=== PATIENT | female | born 2000 | race Caucasian/White ===

== ENCOUNTER 2024-07-15 06:32 | Outpatient (REF) | payer BC, SELFPAY ==
--- NOTE | ~2024-07-15 | US_ITS ---
EXAMINATION: US PELVIS TRANSABDOMINAL AND TRANSVAGINAL HISTORY: POSTCOITAL BLEEDING, PT HAS IUD COMPARISON: There are no prior studies for comparison. TECHNIQUE: Transabdominal and endovaginal real-time 2D ann-scale ultrasound was performed. FINDINGS: Uterus: The uterus is normal in size, measuring 7.2 x 3.0 x 3.5 cm. Myometrium has a normal echotexture. No fibroids are identified. Endometrium: The endometrial stripe measures 2 mm in thickness. An IUD is noted in the expected position in the endometrial canal. Right ovary: The right ovary measures 3.4 x 1.8 x 2.0 cm. The right ovary is normal in size and echotexture. Left ovary: The left ovary measures 2.3 x 1.6 x 2.0 cm. The left ovary is normal in size and echotexture. Pelvic fluid: none. US/US pelvic and transvaginal IMPRESSION: Unremarkable pelvic ultrasound. IUD in the expected position in the endometrial canal. Electronically signed by: Leopoldo Azar MD 07/16/2024 07:11 AM EDT
--- OUTSIDE RECORDS SUMMARY | 2024-07-15 06:36 | XMS_ITS | Encounter Summary ---
Author Organization [facility] Address [address] [place] [address] Care Team Providers Care Electronic Gaming Device Supervisor Name Role Phone Leopoldo Marin MD Primary Care Provider Adilene Jackson MD Primary Care Provider [phone] Encounter Details Date Type Department Care Team (Late st Contact Info) Description 06/27/2018 Orders Only [facility] [address] [place] [address] Kandi Heller MD [address] [place] [address] Social History Tobacco Use Types Packs/Day Years Used Date Smoking Tobacco: Never Assessed Comments No Sex and Gender Information Value Date Recorded Sex Assigned at Female 02/15/2023 1:29 PM EDT Legal Sex Female 1:31 PM EDT Gender Identity Female 02/15/2023 1:29 PM EDT Sexual Orientation Not on file documented as of this encounter Plan of Treatment Not on file documented as of this encounter Procedures * Due to [place] GRU[place] law, this organization might not be sharing negative HIV tests. Procedure Name Priority Date/Time Associated Diagnosis Comments CHLAMYDIA TRACHOMATIS/N. GONORRHOEAE (GC) RNA, TMA (URINE) Routine 06/27/2018 3:38 PM EST Difficult or painful urination documented in this encounter Results * Due to [place] state law, this organization might not be sharing negative HIV tests. * CHLAMYDIA TRACHOMATIS/N. GONORRHOEAE (GC) RNA, TMA (URINE) (06/27/2018 3:38 PM EST) Chlamydia trachomatis rRNA NOT DETECTED NOT DETECTED [facility] Neisseria Gonorrhoeae rRNA NOT DETECTED NOT DETECTED [facility] COMMENT SEE NOTE [facility] Comment: This test was performed using the APTIMA COMBO2 Assay ([employer] The analytical performance characteristics of this assay, when used to test SurePath specimens have been determined by [employer]. 06/27/2018 3:38 PM EST 06/27/2018 10:35 PM EST Narrative Resulting Agency Comment [id number] Kandi Heller MD LABORATORY Final Result Performing Organization Address City/State/[facility] Co de Phone Number [facility] [address] [place] [address] documented in this encounter Visit Diagnoses Diagnosis Difficult or painful urination Dysuria documented in this encounter Additional Health Concerns Infection Onset Date Last Indicated Resolved Time COVID-19 Rule-Out 04/22/2020 04/22/2020 04/25/2020 8:07 AM EST COVID-19 Confirmed 04/22/2020 04/22/2020 8:12 PM EDT documented as of this encounter Care Teams Electronic Gaming Device Supervisor Relationship Specialty Start Date End Date Leopoldo Marin MD [address] [place] [address] PCP - General 10/21/09 02/14/23 Aidlene Jackson MD [address] [place] [address] PCP - General Internal Medicine 02/15/23 documented as of this encounter
--- OUTSIDE RECORDS SUMMARY | 2024-07-15 06:36 | XMS_ITS | Encounter Summary ---
Author Organization [facility] Address [address] [place] [address] Phone Care Team Providers Care Button Facing Machine Operator Name Role Phone Leopoldo Marin MD Primary Care Provider Encounter Details Date Type Department Care Team (Late st Contact Info) Description 07/06/2021 Transcribe Orders Virtual Department [address] [place] [address] Vicki Valladares, MELIZA [address] [place] [phone] [email or web address] Pelvic pain (Primary Dx); Abnormal vaginal bleeding Social History Tobacco Use Types Packs/Day Years Used Date Smoking Tobacco: Never Assessed Sex and Gender Information Value Date Recorded Sex Assigned at Not on file Gender Identity Not on file Sexual Orientation Not on file documented as of this encounter Plan of Treatment Not on file documented as of this encounter Results * US PELVIS TRANSABDOMINAL PLUS TRANSVAGINAL (07/20/2021 5:42 PM EDT) Anatomical Region Laterality Modality Pelvis, Uterus/Adnexa Ultrasound 07/21/2021 10:0 2 AM EDT Impressions 07/21/2021 10:07 AM EDT 1. No evidence of uterine abnormalities. IUD adequately positioned within the endometrial canal. 2. Mildly complicated 2.7 cm cyst within the right ovary, likely clinically insignificant. Probable involuting corpus luteal cyst within the left ovary. Narrative 07/21/2021 10:07 AM EDT HISTORY: ??Disparity anemia and bleeding. Status post IUD placement 2 years ago. EXAM: ??Transabdominal and transvaginal pelvic ultrasound. COMPARISON: None. FINDINGS: Uterus: ??Uterus is normal in size and echogenicity. It measures 7.1 cm x 4.4 cm x 3.1 cm. Endometrial stripe normal measuring 4 mm in thickness. The IUD appears adequately positioned within the endometrial canal. No evidence of uterine masses. Ovaries: ??Both ovaries are normal in size. Right ovary measures 3.8 cm x 3.5 cm x 2.1 cm. Left ovary measures 3.5 cm x 2.4 cm x 2.3 cm. Normal arterial and venous blood flow demonstrated to both ovaries. 2.7 cm x 2.5 cm x 1.2 cm cyst within the right ovary containing 2 thin septations. 14 mm x 13 mm x 10 mm cyst within the left ovary containing mild internal echoes and increased vascularity around the margin, likely an involuting corpus luteum. Ovaries otherwise normal. Other: ??Small amount of free fluid, within physiologic range. No pelvic masses. Procedure Note Panda Herrera MD - 07/21/2021 HISTORY: Disparity anemia and bleeding. Status post IUD placement 2 yearsago. EXAM: Transabdominal and transvaginal pelvic ultrasound. COMPARISON: None. FINDINGS: Uterus: Uterus is normal in size and echogenicity. It measures 7.1 cm x4.4 cm x 3.1 cm. Endometrial stripe normal measuring 4 mm in thickness.The IUD appears adequately positioned within the endometrial canal. Noevidence of uterine masses. Ovaries: Both ovaries are normal in size. Right ovary measures 3.8 cm x3.5 cm x 2.1 cm. Left ovary measures 3.5 cm x 2.4 cm x 2.3 cm. Normalarterial and venous blood flow demonstrated to both ovaries. 2.7 cm x 2.5cm x 1.2 cm cyst within the right ovary containing 2 thin septations. 14mm x 13 mm x 10 mm cyst within the left ovary containing mild internalechoes and increased vascularity around the margin, likely an involutingcorpus luteum. Ovaries otherwise normal. Other: Small amount of free fluid, within physiologic range. No pelvicmasses. IMPRESSION: 1. No evidence of uterine abnormalities. IUD adequately positioned withinthe endometrial canal. 2. Mildly complicated 2.7 cm cyst within the right ovary, likelyclinically insignificant. Probable involuting corpus luteal cyst withinthe left ovary. Marci-Ortiz Valladares SLURRY WORKER IMG US PELVIS documented in this encounter Visit Diagnoses Diagnosis Pelvic pain- Primary Abnormal vaginal bleeding Other specified noninflammatory disorder of vagina Pelvic pain Abnormal vaginal bleeding Other specified noninflammatory disorder of vagina documented in this encounter Care Teams Button Facing Machine Operator Relationship Specialty Start Date End Date Leopoldo Marin MD [address] [place] [address] PCP - General Pediatrics 07/08/21 documented as of this encounter Additional Source Comments The information contained in this document represents components of the legal health record. It is not the complete legal health record.[facility]
--- OUTSIDE RECORDS SUMMARY | 2024-07-15 06:36 | XMS_ITS | Encounter Summary ---
Author Organization [facility] Address [address] [place] [address] Care Team Providers Care Rail Washer Name Role Phone Leopoldo Marin MD Primary Care Provider Adilene Jackson MD Primary Care Provider Encounter Details Date Type Department Care Team (Late st Contact Info) Description 07/29/2012 Orders Only [facility]s [address] [place] [address] Leopoldo Marin MD [address] [place] [address] Medications Social History Tobacco Use Types Packs/Day Years [...] on file documented as of this encounter Visit Diagnoses Not on filedocumented in this encounter Additional Health Concerns Infection Onset Date Last Indicated Resolved Time COVID-19 Rule-Out 04/22/2020 04/22/2020 04/25/2020 8:07 AM EST COVID-19 Confirmed 04/22/2020 04/22/2020 8:12 PM EDT documented as of this encounter Care Teams Rail Washer Relationship Specialty Start Date End Date Leopoldo Marin MD [address] [place] [address] PCP - General 10/21/09 02/14/23 Adilene Jackson MD [address] [place] [address] PCP - General Internal Medicine 02/15/23 documented as of this encounter
--- OUTSIDE RECORDS SUMMARY | 2024-07-15 06:36 | XMS_ITS | Encounter Summary ---
Author Organization [facility] Address [address] [place] [address] Care Team Providers Care Mortgage Funder Name Role Phone Leopoldo Marin MD Primary Care Provider Leopoldo Marin MD Primary Care Provider [phone] Adilene Jackson MD Primary Care Provider [phone] Encounter Details Date Type Department Care Team (Late st Contact Info) Description 03/09/2009 Orders Only [facility] [address] [place] [address] Leopoldo Marin MD [address] [place] [address] Social History Tobacco Use Types Packs/Day Years Used Date Smoking Tobacco: Never Assessed Comments Unknown Sex and Gender Information Value Date Recorded Sex Assigned at Female 02/15/2023 1:29 PM EDT Legal Sex Female 1:31 PM EDT Gender Identity Female 02/15/2023 1:29 PM EDT Sexual Orientation Not on file documented as of this encounter Plan of Treatment Not on file documented as of this encounter Procedures * Due to [place] state law, this organization might not be sharing negative HIV tests. Procedure Name Priority Date/Time Associated Diagnosis Comments CULTURE, STREP SCREEN (GROUP A), THROAT Routine 03/09/2009 Acute pharyngitis documented in this encounter Results * Due to [place] state law, this organization might not be sharing negative HIV tests. * CULTURE, STREP SCREEN (GROUP A), THROAT (03/09/2009) Result(s) SEE TEXT [facility] Comment: SOURCE: THROAT NO GROUP A STREPTOCOCCI ISOLATED 03/09/2009 03/09/2009 9:4 3 PM EST Leopoldo Marin MD LABORATORY Final Result [facility] [address] [place] [address] documented in this encounter Visit Diagnoses Diagnosis Acute pharyngitis documented in this encounter Additional Health Concerns Infection Onset Date Last Indicated Resolved Time COVID-19 Rule-Out 04/22/2020 04/22/2020 04/25/2020 8:07 AM EST COVID-19 Confirmed 04/22/2020 04/22/2020 8:12 PM EDT documented as of this encounter Care Teams Mortgage Funder Relationship Specialty Start Date End Date Leopoldo Marin MD [address] [place] [address] PCP - General 10/21/09 02/14/23 Leopoldo Marin MD [address] [place] [address] PCP - General 03/08/06 10/20/09 Adilene Jackson MD [address] [place] [address] PCP - General Internal Medicine 02/15/23 documented as of this encounter
--- OUTSIDE RECORDS SUMMARY | 2024-07-15 06:36 | XMS_ITS | Referral Summary ---
Author Organization [facility] Address [address] [place] [address] Care Team Providers Care Saw Man Name Role Phone Adilene Jackson Primary Care Provider [phone] Allergies No known active allergies Medications buPROPion XL (Wellbutrin XL) 150 mg tablet Active dextroamphetamin e sulfate (DEXTROSTAT) 10 mg tablet SMARTSI Tablet(s) By Mouth Every Evening PRN 3 Active escitalopram (Lexapro) 20 mg tablet Active levonorgestreL (Kyleena) 17.5 mcg/24 hrs (5 yrs) 19.5 mg intrauterine device (5 year) by intrauterine route. Active lisdexamfetamine (Vyvanse) 50 mg capsule Active acetic acid (VOSOL) 2% otic solution Place 5 drops into the left ear 3 times a day. 3 mL 4 Active Active Problems Problem Noted Date Diagnosed Date Tachycardia 09/21/2022 Social History Tobacco Use Types Packs/Day Years Used Date Smoking Tobacco: Never Smokeless Tobacco: Never Tobacco Cessation:Counseling Given: Not Answered Comments Unknown Sex and Gender Information Value Date Recorded Sex Assigned at Female 09/20/2022 7:37 PM EDT Legal Sex Female 1:18 PM EDT Gender Identity Female 09/20/2022 7:37 PM EDT Sexual Orientation Choose not to disclose 2022 7:37 PM EDT Last Filed Vital Signs Vital Sign Reading Time Taken Comments Blood Pressure 114/77 08/30/2023 8:22 AM EDT Pulse 86 08/30/2023 8:22 AM EDT Temperature 36.4 ??C (97.5 ??F) 08/30/2023 8:22 AM ED T Respiratory Rate 16 09/21/2022 9:34 AM EDT Oxygen Saturation 99% 08/30/2023 8:22 AM EDT Inhaled Oxygen Concentration - - Weight 63.5 kg (140 lb) 08/30/2023 8:22 AM EDT Height 162.6 cm (5' 4 ) 08/30/2023 8:22 AM EDT Body Mass Index 24.03 08/30/2023 8:22 AM EDT Plan of Treatment Not on file Insurance HMO/POS [address] [place] [address] HMO/POS Care Teams Saw Man Relationship Specialty Start Date End Date Adilene Jackson DO [address] [place] [address] PCP - General 08/30/23
--- OUTSIDE RECORDS SUMMARY | 2024-07-15 06:36 | XMS_ITS | Encounter Summary ---
Author Organization [facility] Address [address] [place] [address] Phone Care Team Providers Care Holter Technician Name Role Phone Leopoldo Marin MD Primary Care Provider Encounter Details Date Type Department Care Team (Late st Contact Info) Description 10/16/2022 Ancillary Orders Virtual Department [address] [place] [address] Vicki Valladares, MELIZA [address] [place] [address] [email or web address] Pelvic and perineal pain; RLQ abdominal pain Social History Tobacco Use Types Packs/Day Years Used Date Smoking Tobacco: Never Assessed Education Answer Date Recorded Are you interested in more education? Not on eva e 08/19/2022 Are you concerned about learning? Not on file 08/19/2022 No 08/19/2022 No 08/19/2022 Digital Access Answer Date Recorded No 09/19/2022 No 09/19/2022 Reliable internet access at home? Not on file 09/19/2022 Device with a working camera? Not on file Sex and Gender Information Value Date Recorded Sex Assigned at Not on file Gender Identity Not on file Sexual Orientation Not on file documented as of this encounter Plan of Treatment Not on file documented as of this encounter Results * US PELVIS TRANSABDOMINAL PLUS TRANSVAGINAL (11/01/2022 1:36 PM EDT) Anatomical Region Laterality Modality Pelvis, Uterus/Adnexa Ultrasound 11/08/2022 9:00 AM EDT Impressions 11/08/2022 10:02 AM EDT No abnormalities on pelvic ultrasound. IUD adequately positioned within the endometrial canal. Narrative 11/08/2022 10:02 AM EDT US PELVIS TRANSABDOMINAL PLUS TRANSVAGINAL HISTORY: Right-sided pelvic pain and abnormal vaginal bleeding, IUD known to be in place. TECHNIQUE: Pelvic Ultrasound Transabdominal performed for global imaging of the pelvis. Pelvic Ultrasound Transvaginal performed for detailed imaging of the endometrium and/or adnexa. COMPARISON: Pelvic ultrasound 08/25/2021. FINDINGS: Uterus: Size: ??6.6 cm x 3.6 cm x 1.4 cm similar to previous ultrasound. cm. Orientation: Slightly anteverted. ??Myometrium: Normal. Endometrium: Normal. ID visible within the endometrial canal. It appears adequately positioned. Endometrial stripe thickness: 3 mm. Right adnexa: Ovary: The ovary is normal in size and demonstrates a normal follicular pattern. Dominant follicle within the ovary. Normal arterial and venous blood flow demonstrated to the ovary. The ovary measures 3.3 cm x 2.3 cm x 1.8 cm. Left adnexa: Ovary: The ovary is normal in size and demonstrates a normal follicular pattern. Normal arterial and venous blood flow demonstrated to the ovary. The ovary measures 2.9 cm x 2.1 cm x 1.4 cm. Free fluid: No significant free fluid. Procedure Note Panda Herrera MD - 11/08/2022 US PELVIS TRANSABDOMINAL PLUS TRANSVAGINAL HISTORY: Right-sided pelvic pain and abnormal vaginal bleeding, IUD knownto be in place. TECHNIQUE: Pelvic Ultrasound Transabdominal performed for global imagingof the pelvis. Pelvic Ultrasound Transvaginal performed for detailedimaging of the endometrium and/or adnexa. COMPARISON: Pelvic ultrasound 08/25/2021. FINDINGS: Uterus: Size: 6.6 cm x 3.6 cm x 1.4 cm similar to previous ultrasound. cm. Orientation: Slightly anteverted. Myometrium: Normal. Endometrium: Normal. ID visible within the endometrial canal. It appearsadequately positioned. Endometrial stripe thickness: 3 mm. Right adnexa: Ovary: The ovary is normal in size and demonstrates a normal follicular pattern.Dominant follicle within the ovary. Normal arterial and venous blood flowdemonstrated to the ovary. The ovary measures 3.3 cm x 2.3 cm x 1.8 cm. Left adnexa: Ovary: The ovary is normal in size and demonstrates a normal follicular pattern.Normal arterial and venous blood flow demonstrated to the ovary. The ovarymeasures 2.9 cm x 2.1 cm x 1.4 cm. Free fluid: No significant free fluid. IMPRESSION: No abnormalities on pelvic ultrasound. IUD adequately positioned withinthe endometrial canal. Vicki Valladares CNP IMG US PELVIS documented in this encounter Visit Diagnoses Diagnosis Pelvic and perineal pain RLQ abdominal pain Abdominal pain, right lower quadrant Pelvic and perineal pain RLQ abdominal pain Abdominal pain, right lower quadrant documented in this encounter Care Teams Holter Technician Relationship Specialty Start Date End Date Leopoldo Marin MD [address] [place] [address] PCP - General Pediatrics 07/08/21 documented as of this encounter Additional Source Comments The information contained in this document represents components of the legal health record. It is not the complete legal health record.[facility]
--- OUTSIDE RECORDS SUMMARY | 2024-07-15 06:36 | XMS_ITS | Encounter Summary ---
Author Organization [facility] Address [address] [place] [address] Care Team Providers Care Pest Control Pilot Name Role Phone Leopoldo Marin MD Primary Care Provider [phone] Leopoldo Marin MD Primary Care Provider Adilene Jackson MD Primary Care Provider [phone] Reason for Visit * Reason Onset Date Comments FYI 11/20/2008 School Evaluatio n Encounter Details Date Type Department Care Team (Late st Contact Info) Description 11/20/2008 Telephone [facility] Pediatrics [address] [place] [address] Leopoldo Marin MD [address] [place] [address] FYI (School Evaluation) Social History Tobacco Use Types Packs/Day Years Used Date Smoking Tobacco: Never Assessed Comments Unknown Sex and Gender Information Value Date Recorded Sex Assigned at Female 02/15/2023 1:29 PM EDT Legal Sex Female 1:31 PM EDT Gender Identity Female 02/15/2023 1:29 PM EDT Sexual Orientation Not on file documented as of this encounter Miscellaneous Notes * Telephone Encounter - Onleia Lorenz-Bernabe - 11/20/2008 10:47 AM EDT Mom dropped off school's evaluation of patient. Sent to PCP for review. documented in this encounter Plan of Treatment Not on file documented as of this encounter Visit Diagnoses Not on filedocumented in this encounter Additional Health Concerns Infection Onset Date Last Indicated Resolved Time COVID-19 Rule-Out 04/22/2020 04/22/2020 04/25/2020 8:07 AM EST COVID-19 Confirmed 04/22/2020 04/22/2020 8:12 PM EDT documented as of this encounter Care Teams Pest Control Pilot Relationship Specialty Start Date End Date Leopoldo Marin MD [address] [place] [address] PCP - General 10/21/09 02/14/23 Leopoldo Marin MD [address] [place] [address] PCP - General 03/08/06 10/20/09 Adilene Jackson MD [address] [place] [address] PCP - General Internal Medicine 02/15/23 documented as of this encounter
--- OUTSIDE RECORDS SUMMARY | 2024-07-15 06:36 | XMS_ITS | Encounter Summary ---
Author Organization [facility] Address [address] [place] [address] Care Team Providers Care A P Manager Name Role Phone Leopoldo Marin MD Primary Care Provider [phone] Adilene Jackson MD Primary Care Provider Encounter Details Date Type Department Care Team (Late st Contact Info) Description 07/13/2020 Orders Only [facility] [address] [place] [address] Kathy Willis MD [facility] [address] [place] [address] Social History Tobacco Use Types Packs/Day Years Used Date Smoking Tobacco: Never Smokeless Tobacco: Never Comments No Sex and Gender Information Value Date Recorded Sex Assigned at Female 02/15/2023 1:29 PM EDT Legal Sex Female 1:31 PM EDT Gender Identity Female 02/15/2023 1:29 PM EDT Sexual Orientation Not on file COVID-19 Exposure Response Date Recorded In the last month, have you been in contact with someone who was confirmed or suspected to have Coronavirus / COVID-19? No / Unsure 07/09/2020 12:44 PM EDT documented as of this encounter Plan of Treatment Not on file documented as of this encounter Procedures * Due to [place] state law, this organization might not be sharing negative HIV tests. Procedure Name Priority Date/Time Associated Diagnosis Comments CHLAMYDIA TRACHOMATIS/N. GONORRHOEAE (GC) RNA, TMA (URINE) Routine 07/13/2020 5:12 PM EDT Encounter for screening for infections with predominantly sexual mode of transmission documented in this encounter Results * Due to [place] state law, this organization might not be sharing negative HIV tests. * CHLAMYDIA TRACHOMATIS/N. GONORRHOEAE (GC) RNA, TMA (URINE) (07/13/2020 5:12 PM EDT) Chlamydia trachomatis rRNA NOT DETECTED NOT DETECTED [facility] Neisseria Gonorrhoeae rRNA NOT DETECTED NOT DETECTED [facility] COMMENT SEE NOTE [facility] Comment: The analytical performance characteristics of this assay, when used to test SurePath(TM) specimens have been determined by [employer]. The modifications have not been cleared or approved by the FDA. This assay has been validated pursuant to the CLIA regulations and is used for clinical purposes. For additional information, please refer to https://education.CustEx/faq/HKO755 (This link is being provided for information/ educational purposes only.) 07/13/2020 5:12 PM EDT 07/14/2020 2:28 AM EDT Narrative Resulting Agency Comment [id number] Leopoldo Marin MD LABORATORY Final Result [facility] [address] [place] [address] documented in this encounter Visit Diagnoses Diagnosis Encounter for screening for infections with predominantly sexual mode of transmission Screening examination for venereal disease documented in this encounter Additional Health Concerns Infection Onset Date Last Indicated Resolved Time COVID-19 Confirmed 04/22/2020 04/22/2020 8:12 PM EDT documented as of this encounter Care Teams A P Manager Relationship Specialty Start Date End Date Leopoldo Marin MD [address] [place] [address] PCP - General 10/21/09 02/14/23 Adilene Jackson MD [address] [place] [address] PCP - General Internal Medicine 02/15/23 documented as of this encounter
--- OUTSIDE RECORDS SUMMARY | 2024-07-15 06:36 | XMS_ITS | Encounter Summary ---
Author Organization [facility] Address [address] [place] [address] Care Team Providers Care Ocular Care Aide Name Role Phone Leopoldo Marin MD Primary Care Provider [phone] Adilene Jackson MD Primary Care Provider [phone] Encounter Details Date Type Department Care Team (Late st Contact Info) Description 03/13/2012 Orders Only [facility] [address] [place] [address] Charisma Holder PA Social History Tobacco Use Types Packs/Day Years [...] of this encounter Procedures * Due to [place] [employer] law, this organization might not be sharing negative HIV tests. Procedure Name Priority Date/Time Associated Diagnosis Comments CULTURE,AEROBIC WOUND,SUPERFICIAL Routine 03/13/2012 3:40 PM EST Abscess documented in this encounter Results * Due to [place] [employer] law, this organization might not be sharing negative HIV tests. * CULTURE, WOUND, SUPERFICIAL (03/13/2012 3:40 PM EST) Bacteria culture SEE NOTE [facility] Comment: {CULTURE, AEROBIC BACTERIA {[id number]) ??CULTURE, AEROBIC BACTERIA ??MICRO NUMBER: ?[id number] ??TEST STATUS: ? FINAL ??SPECIMEN SOURCE: ?? NOT GIVEN ??SPECIMEN QUALITY: ??ADEQUATE ??RESULT: ?Growth of skin nikhil (note: Growth does not ? include S. aureus, beta-hemolytic Streptococci ? or P. aeruginosa). 03/13/2012 3:40 PM EST 03/13/2012 10:19 PM EST Narrative Resulting Agency Comment [id number] [facility] Final Result Performing Organization Address City/State/[facility] Co de Phone Number [facility] [address] [place] [address] documented in this encounter Visit Diagnoses Diagnosis Abscess Cellulitis and abscess of unspecified site documented in this encounter Additional Health Concerns Infection Onset Date Last Indicated Resolved Time COVID-19 Rule-Out 04/22/2020 04/22/2020 04/25/2020 8:07 AM EST COVID-19 Confirmed 04/22/2020 04/22/2020 8:12 PM EDT documented as of this encounter Care Teams Ocular Care Aide Relationship Specialty Start Date End Date Leopoldo Marin MD [address] [place] [address] PCP - General 10/21/09 02/14/23 Adilene Jackson MD [address] [place] [address] PCP - General Internal Medicine 02/15/23 documented as of this encounter
--- OUTSIDE RECORDS SUMMARY | 2024-07-15 06:36 | XMS_ITS | Encounter Summary ---
Author Organization [facility] Address [address] [place] [address] Phone Care Team Providers Care Railroad Supervisor Of Engines Name Role Phone Leopoldo Marin MD Primary Care Provider Encounter Details Date Type Department Care Team (Late st Contact Info) Description 03/24/2022 Transcribe Orders Virtual Department [address] [place] [address] Vicki Valladares, CLINICAL RN MANAGER [address] [place] [address] Pelvic and perineal pain (Primary Dx) Social History Tobacco Use Types Packs/Day Years Used Date Smoking Tobacco: Never Assessed Sex and Gender Information Value Date Recorded Sex Assigned at Not on file Gender Identity Not on file Sexual Orientation Not on file documented as of this encounter Plan of Treatment Not on file documented as of this encounter Visit Diagnoses Diagnosis Pelvic and perineal pain- Primary documented in this encounter Care Teams Railroad Supervisor Of Engines Relationship Specialty Start Date End Date Leopoldo Marin MD [address] [place] [address] PCP - General Pediatrics 07/08/21 documented as of this encounter Additional Source Comments The information contained in this document represents components of the legal health record. It is not the complete legal health record.[facility]
--- OUTSIDE RECORDS SUMMARY | 2024-07-15 06:36 | XMS_ITS | Encounter Summary ---
Author Organization [facility] Address [address] [place] [address] Care Team Providers Care Paper Inserter Name Role Phone Leopoldo Marin MD Primary Care Provider Adilene Jackson MD Primary Care Provider [phone] Reason for Visit * Reason Comments CPE/Physical Encounter Details Date Type Department Care Team (Late st Contact Info) Description 03/29/2022 Orders Only Population [facility] [address] [place] [address] Leopoldo Marin MD [address] [place] [address] Social History Tobacco Use Types Packs/Day Years [...] Diagnoses Not on filedocumented in this encounter Care Teams Paper Inserter Relationship Specialty Start Date End Date Leopoldo Marin MD [address] [place] [address] PCP - General 10/21/09 02/14/23 Adilene Jackson MD [address] [place] [address] PCP - General Internal Medicine 02/15/23 documented as of this encounter
--- OUTSIDE RECORDS SUMMARY | 2024-07-15 06:36 | XMS_ITS | Encounter Summary ---
Author Organization [facility] Address [address] [place] [address] Care Team Providers Care Branch Administrator Name Role Phone Leopoldo Marin MD Primary Care Provider Leopoldo Marin MD Primary Care Provider [phone] Adilene Jackson MD Primary Care Provider [phone] Encounter Details Date Type Department Care Team (Late st Contact Info) Description 11/09/2006 Orders Only [facility] [address] [place] [address] Virginie Arndt MD [address] [place] [address] Social History Tobacco Use Types Packs/Day Years [...] of this encounter Procedures * Due to [place] [employer] law, this organization might not be sharing negative HIV tests. Procedure Name Priority Date/Time Associated Diagnosis Comments CULTURE, URINE Routine 11/09/2006 DYSURIA documented in this encounter Results * Due to [place] state law, this organization might not be sharing negative HIV tests. * (ABNORMAL) CULTURE, URINE (11/09/2006) URINE CULTURE CLEAN VOID SEE TEXT(A) [facility] OJEDA (CLIA# [id number]) Comment: SOURCE: URINE (#1) >100,000 CFU/ML E COLI SUSCEPTIBILITIES ? #1 ??AMPICILLIN ?4 S ?AMPICILLIN/SUL ? <8 S ?AZTREONAM ?<8 S ?CEFAZOLIN ?<8 S ?CEFEPIME ? <8 S ?CEFOTAXIME ? <8 S ?CEFTRIAXONE ?<8 S ?CEFUROXIME ? <4 S ?CEPHALOTHIN ?<8 S ?CIPROFLOXACIN ?<1 S ?GENTAMICIN ? <1 S ?LEVOFLOXACIN ? <2 S ?NITROFURANTOIN ?<32 S ?PIPERACILLIN/TA ?? <16 S ?TETRACYCLINE ? <4 S ?TIMENTIN ?<16 S ?TRIMETH/SULFA ?<2 S ?TRIMETHOPRIM ? <8 S ?? 11/09/2006 11/09/2006 9:1 7 PM EDT us Virginie Arndt MD LABORATORY Final Result DEBRA OJEDA (CLIA# [id number]) [address] [place] [address] documented in this encounter Visit Diagnoses Diagnosis DYSURIA Dysuria documented in this encounter Additional Health Concerns Infection Onset Date Last Indicated Resolved Time COVID-19 Rule-Out 04/22/2020 04/22/2020 04/25/2020 8:07 AM EST COVID-19 Confirmed 04/22/2020 04/22/2020 8:12 PM EDT documented as of this encounter Care Teams Branch Administrator Relationship Specialty Start Date End Date Leopoldo Marin MD [address] [place] [address] PCP - General 10/21/09 02/14/23 Leopoldo Marin MD [address] [place] [address] PCP - General 03/08/06 10/20/09 Adilene Jackson MD [address] [place] [address] PCP - General Internal Medicine 02/15/23 documented as of this encounter
--- OUTSIDE RECORDS SUMMARY | 2024-07-15 06:36 | XMS_ITS | Clinical Summary ---
Author Organization [facility] Address [address] [place] [address] Phone Care Team Providers Care Homicide Squad Commanding Officer Name Role Phone Leopoldo Marin MD Primary Care Provider Social History Tobacco Use Types Packs/Day Years [...] on file Sexual Orientation Not on file Plan of Treatment Health Maintenance Due Date Last Done Comments DEPRESSION SCREENING 2013 SMOKING Hx and SMOKELESS TOBACCO SCREENING 2014 CHLAMYDIA SCREENING 2017 Adult Td,Tdap Booster 11/17/2018 11/17/2008 HEPATITIS B SCREENING 10/23/2019 HEPATITIS C SCREENING 10/23/2019 HIV ONE-TIME SCREENING (18-65 YEARS) 10/23/2019 PAP SMEAR 2022 INFLUENZA VACCINE (#1) 2023 , 03/01/2021, 01/26/2020, Additional history exists COVID-19 VACCINE ( season) 2023 03/24/2022, 05/02/2021, 08/11/2020, Additional history exists HEPATITIS B VACCINES Completed 08/20/2002, 2001, 2001 PNEUMOCOCCAL VACCINES (0-49 years) Aged Out 04/28/2003, 05/07/2002, 02/10/2002, Additional history exists No longer eligible based on patient's age to complete this topic HIB VACCINES Completed 06/03/2003, 04/23, 02/10/2002, Additional history exists HEPATITIS A VACCINES Completed 11/06/2012, 11/07/19 12 HPV VACCINES Completed 09/14/2015, 04/24, 03/08/2015 MENINGOCOCCAL VACCINES (ACWY) Completed 04/03/2018, 11/06/2012 Medical Devices Not on file Care Teams Homicide Squad Commanding Officer Relationship Specialty Start Date End Date Leopoldo Marin MD [address] [place] [address] PCP - General Pediatrics 07/08/21 Additional Source Comments The information contained in this document represents components of the legal health record. It is not the complete legal health record.[facility]
--- OUTSIDE RECORDS SUMMARY | 2024-07-15 06:36 | XMS_ITS | Encounter Summary ---
Author Organization [facility] Address [address] [place] [address] Phone Care Team Providers Care Workday Manager Name Role Phone Leopoldo Marin MD Primary Care Provider Encounter Details Date Type Department Care Team (Late st Contact Info) Description 08/22/2021 Transcribe Orders Virtual Department [address] [place] [address] Vicki Valladares, EMAIL MARKETING MANAGER [address] [place] [address] [email or web address] Complex cyst of right ovary (Primary Dx) Social History Tobacco Use Types Packs/Day Years Used Date Smoking Tobacco: Never Assessed Sex and Gender Information Value Date Recorded Sex Assigned at Not on file Gender Identity Not on file Sexual Orientation Not on file documented as of this encounter Plan of Treatment Not on file documented as of this encounter Results * US PELVIS TRANSVAGINAL ONLY (08/25/2021 11:40 AM EDT) Anatomical Region Laterality Modality Pelvis, Uterus/Adnexa Ultrasound 08/25/2021 2:56 PM EDT Impressions 08/25/2021 2:59 PM EDT Benign 1.7 cm right ovarian involuting hemorrhagic versus corpus luteum cyst, for which no further imaging follow-up is required. Narrative 08/25/2021 2:59 PM EDT US PELVIS TRANSVAGINAL TECHNIQUE: Pelvic Ultrasound Transvaginal performed for detailed imaging of the endometrium and/or adnexa. COMPARISON: 07/20/2021 FINDINGS: Uterus: Size: 6.7 x 3 x 4 cm. IUD in satisfactory position. ??Myometrium: Normal. Endometrium: Normal. Thickness: 4 mm. Right adnexa: Ovary: Measures 3 x 1.8 x 2.5 cm Benign 1.7 x 1 x 1.4 cm right ovarian involuting hemorrhagic versus corpus luteum cyst, decreased in size from the prior study Left adnexa: Ovary: Normal Measures 2.3 x 2 x 1.5 cm Free fluid: No significant free fluid. Procedure Note Misti Maurer MD - 08/25/2021 US PELVIS TRANSVAGINAL TECHNIQUE: Pelvic Ultrasound Transvaginal performed for detailed imagingof the endometrium and/or adnexa. COMPARISON: 07/20/2021 FINDINGS: Uterus: Size: 6.7 x 3 x 4 cm. IUD in satisfactory position. Myometrium: Normal. Endometrium: Normal. Thickness: 4 mm. Right adnexa: Ovary: Measures 3 x 1.8 x 2.5 cm Benign 1.7 x 1 x 1.4 cm right ovarian involuting hemorrhagic versus corpusluteum cyst, decreased in size from the prior study Left adnexa: Ovary: Normal Measures 2.3 x 2 x 1.5 cm Free fluid: No significant free fluid. IMPRESSION: Benign 1.7 cm right ovarian involuting hemorrhagic versus corpus luteumcyst, for which no further imaging follow-up is required. Vicki Valladares [facility] US PELVIS documented in this encounter Visit Diagnoses Diagnosis Complex cyst of right ovary- Primary Complex cyst of right ovary documented in this encounter Care Teams Workday Manager Relationship Specialty Start Date End Date Leopoldo Marin MD [address] [place] [address] PCP - General Pediatrics 07/08/21 documented as of this encounter Additional Source Comments The information contained in this document represents components of the legal health record. It is not the complete legal health record.[facility]
--- OUTSIDE RECORDS SUMMARY | 2024-07-15 06:36 | XMS_ITS | Encounter Summary ---
Author Organization [facility] Address [address] [place] [address] Care Team Providers Care Passenger Attendant Name Role Phone Leopoldo Marin MD Primary Care Provider Leopoldo Marin MD Primary Care Provider [phone] Adilene Jackson MD Primary Care Provider [phone] Reason for Visit * Reason Onset Date Comments No Show 03/09/2009 Encounter Details Date Type Department Care Team (Late st Contact Info) Description 03/09/2009 Telephone [facility] [address] [place] [address] Leopoldo Marin MD [address] [place] [address] No Show Social History Tobacco Use Types Packs/Day Years Used Date Smoking Tobacco: Never Assessed Comments Unknown Sex and Gender Information Value Date Recorded Sex Assigned at Female 02/15/2023 1:29 PM EDT Legal Sex Female 1:31 PM EDT Gender Identity Female 02/15/2023 1:29 PM EDT Sexual Orientation Not on file documented as of this encounter Miscellaneous Notes * Telephone Encounter - Onelia Lorenz-Bernabe - 03/09/2009 9:32 AM EST Pt no showed an appointment on 02/16/09 for a physical. Call to home was made on 02/17/09- with no return call to reschedule. Mailed letter on 03/09/09. documented in this encounter Plan of Treatment Not on file documented as of this encounter Visit Diagnoses Not on filedocumented in this encounter Additional Health Concerns Infection Onset Date Last Indicated Resolved Time COVID-19 Rule-Out 04/22/2020 04/22/2020 04/25/2020 8:07 AM EST COVID-19 Confirmed 04/22/2020 04/22/2020 8:12 PM EDT documented as of this encounter Care Teams Passenger Attendant Relationship Specialty Start Date End Date Leopoldo Marin MD [address] [place] [address] PCP - General 10/21/09 02/14/23 Leopoldo Marin MD [address] [place] [address] PCP - General 03/08/06 10/20/09 Adilene Jackson MD [address] [place] [address] PCP - General Internal Medicine 02/15/23 documented as of this encounter
--- OUTSIDE RECORDS SUMMARY | 2024-07-15 06:36 | XMS_ITS | Encounter Summary ---
Author Organization [facility] Address [address] [place] [address] Care Team Providers Care Larry Operator Name Role Phone Leopoldo Marin MD Primary Care Provider [phone] Leopoldo Marin MD Primary Care Provider [phone] Adilene Jackson MD Primary Care Provider [phone] Encounter Details Date Type Department Care Team (Late st Contact Info) Description 05/06/2009 Orders Only [facility] [address] [place] [address] Tali Santoro MD Social History Tobacco Use Types Packs/Day Years [...] of this encounter Procedures * Due to [place] state law, this organization might not be sharing negative HIV tests. Procedure Name Priority Date/Time Associated Diagnosis Comments CULTURE, STREP SCREEN (GROUP A), THROAT Routine 05/06/2009 Sore throat MICROSCOPIC URINE Routine 05/06/2009 CULTURE, URINE Routine 05/06/2009 Abdominal pain URINALYSIS, DIPSTICK WITH REFLEX MICROSCOPIC Routine 05/06/2009 Abdominal pain documented in this encounter Results * Due to [place] state law, this organization might not be sharing negative HIV tests. * MICROSCOPIC URINE (05/06/2009) WBC (URINE) 0-5 0-4/HPF [facility] RBC (Urine Sed) 0 0-3/HPF [facility] EPITHELIAL CELLS.SQUAMOUS (URINE SED) 0 0-5/HPF [facility] EPITHELIAL CELLS.TRANSITIO NAL (URINE SED) 0 0-5/HPF [facility] EPITHELIAL CELLS.RENAL (URINE SED) 0 0-3/HPF [facility] BACTERIA (URINE) NONE SEEN NONE SEEN [facility] 05/06/2009 05/07/2009 12: 16 AM EST Tali Santoro MD LABORATORY Final Result Performing Organization Address [facility] de Phone Number [facility] [address] [place] [address] * CULTURE, STREP SCREEN (GROUP A), THROAT (05/06/2009) Result(s) SEE TEXT [facility] Comment: SOURCE: THROAT NO GROUP A STREPTOCOCCI ISOLATED 05/06/2009 05/07/2009 12: 16 AM EST Tali Santoro MD LABORATORY Final Result Performing Organization Address [facility] de Phone Number [facility] [address] [place] [address] * CULTURE, URINE (05/06/2009) URINE CULTURE CLEAN VOID SEE TEXT [facility] Comment: SOURCE: URINE NO GROWTH 05/06/2009 05/07/2009 12: 16 AM EST Tali Santoro MD LABORATORY Final Result Performing Organization Address [facility] Co de Phone Number [facility] [address] [place] [address] * (ABNORMAL) URINALYSIS, DIPSTICK WITH REFLEX MICROSCOPIC (05/06/2009) COLOR (URINE) YELLOW YELLOW [facility] APPEARANCE (URINE) CLEAR CLEAR [facility] SPECIFIC GRAVITY 1.034 1.001 - 1.035 [facility] PH (URINE) 7.5 5.0 - 8.0 [facility] PROTEIN (URINE) 1+(A) NEG [facility] GLUCOSE (URINE) NEG NEG [facility] Ketones (Urine) NEG NEG [facility] BILIRUBIN (URINE) NEG NEG [facility] BLOOD (URINE) NEG NEG [facility] WBC (URINE) NEG NEG [facility] NITRITE (URINE) NEG NEG [facility] 05/06/2009 05/07/2009 12: 16 AM EST us Tali Santoro MD LAB SAME DAY RESULT Final Resul t [facility] [address] [place] [address] documented in this encounter Visit Diagnoses Diagnosis Abdominal pain Abdominal pain, unspecified site Sore throat Acute pharyngitis documented in this encounter Additional Health Concerns Infection Onset Date Last Indicated Resolved Time COVID-19 Rule-Out 04/22/2020 04/22/2020 04/25/2020 8:07 AM EST COVID-19 Confirmed 04/22/2020 04/22/2020 8:12 PM EDT documented as of this encounter Care Teams Larry Operator Relationship Specialty Start Date End Date Leopoldo Marin MD [address] [place] [address] PCP - General 10/21/09 02/14/23 Leopoldo Marin MD [address] [place] [address] PCP - General 03/08/06 10/20/09 Adilene Jackson MD [address] [place] [address] PCP - General Internal Medicine 02/15/23 documented as of this encounter
--- OUTSIDE RECORDS SUMMARY | 2024-07-15 06:36 | XMS_ITS | Encounter Summary ---
Author Organization [facility] Address [address] [place] [address] Care Team Providers Care Gas Turbine Powerplant Mechanic Helper Name Role Phone Leopoldo Marin MD Primary Care Provider Adilene Jackson MD Primary Care Provider [phone] Encounter Details Date Type Department Care Team (Late st Contact Info) Description 04/10/2019 Orders Only [facility] [address] [place] [address] Leopoldo Marin MD [address] [place] [address] Social History Tobacco Use Types Packs/Day Years [...] of this encounter Procedures * Due to [place] [employer] law, this organization might not be sharing negative HIV tests. Procedure Name Priority Date/Time Associated Diagnosis Comments CHLAMYDIA TRACHOMATIS/N. GONORRHOEAE (GC) RNA, TMA (URINE) Routine 04/10/2019 11:22 AM EST Screen for sexually transmitted diseases documented in this encounter Results * Due to [place] state law, this organization might not be sharing negative HIV tests. * CHLAMYDIA TRACHOMATIS/N. GONORRHOEAE (GC) RNA, TMA (URINE) (04/10/2019 11:22 AM EST) Chlamydia trachomatis rRNA NOT DETECTED NOT DETECTED [facility] Neisseria Gonorrhoeae rRNA NOT DETECTED NOT DETECTED [facility] COMMENT SEE NOTE [facility] Comment: This test was performed using the APTIMA COMBO2 Assay ([employer] The analytical performance characteristics of this assay, when used to test SurePath specimens have been determined by [employer]. 04/10/2019 11:2 2 AM EST 04/10/2019 1:59 PM EST Narrative Resulting Agency Comment [id number] us Leopoldo Marin MD LABORATORY Final Result Performing Organization Address City/State/[facility] Co de Phone Number [facility] [address] [place] [address] documented in this encounter Visit Diagnoses Diagnosis Screen for sexually transmitted diseases Screening examination for venereal disease documented in this encounter Additional Health Concerns Infection Onset Date Last Indicated Resolved Time COVID-19 Rule-Out 04/22/2020 04/22/2020 04/25/2020 8:07 AM EST COVID-19 Confirmed 04/22/2020 04/22/2020 8:12 PM EDT documented as of this encounter Care Teams Gas Turbine Powerplant Mechanic Helper Relationship Specialty Start Date End Date Leopoldo Marin MD [address] [place] [address] PCP - General 10/21/09 02/14/23 Adilene Jackson MD [address] [place] [address] PCP - General Internal Medicine 02/15/23 documented as of this encounter
--- OUTSIDE RECORDS SUMMARY | 2024-07-15 06:36 | XMS_ITS | Encounter Summary ---
Author Organization [facility] Address [address] [place] [address] Care Team Providers Care Processes Chemical Design Engineer Name Role Phone Leopoldo Marin MD Primary Care Provider [phone] Leopoldo Marin MD Primary Care Provider [phone] Adilene Jackson MD Primary Care Provider [phone] Encounter Details Date Type Department Care Team (Late st Contact Info) Description 02/10/2009 Orders Only [facility] Pediatrics [address] [place] [address] Charisma Holder PA Social History Tobacco Use Types Packs/Day Years Used Date Smoking Tobacco: Never Assessed Comments Unknown Sex and Gender Information Value Date Recorded Sex Assigned at Female 02/15/2023 1:29 PM EDT Legal Sex Female 1:31 PM EDT Gender Identity Female 02/15/2023 1:29 PM EDT Sexual Orientation Not on file documented as of this encounter Progress Notes * Charisma Holder PA - 02/16/2009 1:38 PM EDTQuick Note: . documented in this encounter Plan of Treatment Not on file documented as of this encounter Procedures * Due to [place] state law, this organization might not be sharing negative HIV tests. Procedure Name Priority Date/Time Associated Diagnosis Comments LYME DISEASE PANEL W/WB REFLEX Routine 02/10/2009 Pain in Joint LYME WESTERN BLOT, IGG & IGM PANEL Routine 02/10/2009 SED RATE ESR Routine 02/10/2009 Pain in Joint CBC 5 PART DIFF Routine 02/10/2009 Pain in Joint documented in this encounter Results * Due to [place] state law, this organization might not be sharing negative HIV tests. * (ABNORMAL) LYME WESTERN BLOT, IGG & IGM PANEL (02/10/2009) LYME (B. BURGDORFERI) 18KD IGG NEGATIVE [facility] LYME (B. BURGDORFERI) 23KD IGG POSITIVE [facility] LYME (B. BURGDORFERI) 28KD IGG NEGATIVE [facility] LYME (B. BURGDORFERI) 30KD IGG NEGATIVE [facility] LYME (B. BURGDORFERI) 39KD IGG NEGATIVE [facility] LYME (B. BURGDORFERI) 41KD IGG POSITIVE [facility] LYME (B. BURGDORFERI) 45KD IGG NEGATIVE [facility] LYME (B. BURGDORFERI) 58KD IGG NEGATIVE [facility] LYME (B. BURGDORFERI) 66KD IGG NEGATIVE [facility] LYME (B. BURGDORFERI) 93KD IGG NEGATIVE [facility] LYME (B. BURGDORFERI) IGG INTERPRETATION SEE TEXT NEGATIVE [facility] Comment: NEGATIVE. IGG ANTIBODIES TO LESS THAN 5 OF THE 10 SIGNIFICANT B. BURGDORFERI PROTEINS DETECTED, OR NO IGG ANTIBODIES TO SIGNIFICANT B. BURGDORFERI PROTEINS DETECTED. ADDITIONAL SPECIMENS SHOULD BE SUBMITTED IN 2-4 WEEKS IF B. BURGDORFERI EXPOSURE HAS NOT BEEN RULED OUT. P23 IGM AB POSITIVE [facility] P39 IGM AB NEGATIVE [facility] P41 IGM AB POSITIVE [facility] LYME (B. BURGDORFERI) IGM INTERPRETATION SEE TEXT(A) NEGATIVE [facility] Comment: POSITIVE. IGM ANTIBODIES TO SIGNIFICANT B. BURGDORFERI PROTEINS DETECTED. PRESUMPTIVE EVIDENCE OF PROBABLE EXPOSURE. LYME (B. BURGDORFERI) IGM/IGG (WESTERN BLOT) INTERPRETATION SEE TEXT(A) [facility] Comment: CAUTION MUST BE USED IN SUPPORTING A DIAGNOSIS OF B. BURGDORFERI INFECTION WHEN SERA ARE WESTERN BLOT IGM POSITIVE AND WESTERN BLOT IGG NEGATIVE AFTER THE INITIAL 4 WEEK PERIOD FROM ONSET. ??BECAUSE THE LIKELIHOOD OF A FALSE-POSITIVE TEST RESULT IS HIGH FOR THESE INDIVIDUALS, A POSITIVE IGM TEST ALONE IS NOT RECOMMENDED FOR USE IN DETERMINING ACTIVE DISEASE IN PERSONS WITH ILLNESS OF LONGER THAN ONE MONTH DURATION. 02/10/2009 02/10/2009 9:5 8 PM EDT [facility] Final Result Performing Organization Address City/[facility]/ZIP Co de Phone Number [facility] [address] [place] [address] * SED RATE ESR (02/10/2009) ESR (ERYTHROCYTE SEDIMENTATION RATE) 1 0 - 20 MM/HR [facility] 02/10/2009 02/10/2009 9:5 8 PM EDT [facility] SAME DAY RESULT Final Result Performing Organization Address City/[facility] Co de Phone Number [facility] [address] [place] [address] * (ABNORMAL) CBC 5 PART DIFF (02/10/2009) Pathologist [facility] WHITE BLOOD COUNT 9.5 4.5 - 13.5 THOUS/UL [facility] RBC 3.79(L) 4.00 - 5.20 MIL/UL [facility] Hemoglobin 12.0 11.5 - 15.5 G/DL [facility] HCT (HEMATOCRIT) 35.0 35.0 - 45.0 % [facility] MCV 92.3 77.0 - 95.0 FL [facility] MCH 31.6 25.0 - 33.0 PG [facility] MCHC 34.2 31.0 - 36.0 G/DL [facility] BAND % 0 0 - 5 % [facility] NEUTROPHIL % 39(L) 40 - 65 % [facility] LYMPHOCYTE % 50 30 - 50 % [facility] MONOCYTE % 6 0 - 14 % [facility] EOSINOPHIL % 4 0 - 5 % [facility] BASOPHIL % 1 0 - 3 % [facility] ATYPICAL LYMPHOCYTE % 0 0 - 5 % [facility] PLATELETS 294 140 - 400 THOUS/UL [facility] BANDS # 0 0 - 750 CELLS/MCL [facility] NEUTROPHILS # 3705 1500 - 8000 CELLS/MCL [facility] LYMPHOCYTES # 4750 1500 - 6500 CELLS/MCL [facility] MONOCYTES # 570 200 - 900 CELLS/MCL [facility] EOSINOPHILS # 380 15 - 550 CELLS/MCL [facility] BASOPHILS # 95 0 - 200 CELLS/MCL [facility] ATYPICAL LYMPHOCYTES # 0 0 - 200 CELLS/MCL [facility] RDW 12.1 11.0 - 15.0 % [facility] MPV 8.1 7.5 - 11.5 FL [facility] 02/10/2009 02/10/2009 9:5 8 PM EDT [facility] SAME DAY RESULT Final Result Performing Organization Address [facility] Co de Phone Number [facility] [address] [place] [address] * (ABNORMAL) LYME DISEASE PANEL W/WB REFLEX (02/10/2009) LYME (B. BURGDORFERI) AB SCREEN 3.6(A) [facility] Comment: < OR = 0.90 ?? NEGATIVE 0.91 - 1.09 ?? EQUIVOCAL > OR = 1.10 ?? POSTIVE LYME EIA SCREEN IS REFLEXED TO WESTERN BLOT IF POSITIVE. 02/10/2009 02/10/2009 9:5 8 PM EDT [facility] Final Result Performing Organization Address [facility] de Phone Number [facility] [address] [place] [address] documented in this encounter Visit Diagnoses Diagnosis Pain in joint Pain in joint, site unspecified documented in this encounter Additional Health Concerns Infection Onset Date Last Indicated Resolved Time COVID-19 Rule-Out 04/22/2020 04/22/2020 04/25/2020 8:07 AM EST COVID-19 Confirmed 04/22/2020 04/22/2020 8:12 PM EDT documented as of this encounter Care Teams Processes Chemical Design Engineer Relationship Specialty Start Date End Date Leopoldo Marin MD [address] [place] [address] PCP - General 10/21/09 02/14/23 Leopoldo Marin MD [address] [place] [address] PCP - General 03/08/06 10/20/09 Adilene Jackson MD [address] [place] [address] PCP - General Internal Medicine 02/15/23 documented as of this encounter
--- OUTSIDE RECORDS SUMMARY | 2024-07-15 06:36 | XMS_ITS | Encounter Summary ---
Author Organization [facility] Address [address] [place] [address] Care Team Providers Care Demographer Name Role Phone Leopoldo Marin MD Primary Care Provider Adilene Jackson MD Primary Care Provider [phone] Encounter Details Date Type Department Care Team (Late st Contact Info) Description 04/03/2018 Orders Only [facility] Pediatrics [address] [place] [phone] Kandi Heller MD [address] [place] [address] Social History Tobacco Use Types Packs/Day Years Used Date Smoking Tobacco: Never Assessed Comments No Sex and Gender Information Value Date Recorded Sex Assigned at Female 02/15/2023 1:29 PM EDT Legal Sex Female 1:31 PM EDT Gender Identity Female 02/15/2023 1:29 PM EDT Sexual Orientation Not on file documented as of this encounter Progress Notes * Kandi Heller MD - 04/04/2018 8:12 AM EST Please let mom know Mckenna's labs look good. Cholesterol panel looks ok, slight bump in total cholesterol Electrolytes are all normal documented in this encounter Plan of Treatment Not on file documented as of this encounter Procedures * Due to [place] state law, this organization might not be sharing negative HIV tests. Procedure Name Priority Date/Time Associated Diagnosis Comments LIPID PROFILE + FASTING GLUCOSE Routine 04/03/2018 9:16 AM EST Health check for child over 28 days old THYROID STIMULATING HORMONE (TSH) WITH FREE T4 REFLEX, SERUM Routine 04/03/2018 9:16 AM EST Health check for child over 28 days old VITAMIN D, 25-HYDROXY, TOTAL, IMMUNOASSAY Routine 04/03/2018 9:16 AM EST Health check for child over 28 days old COMPREHENSIVE METABOLIC PANEL WITH GFR Routine 04/03/2018 9:16 AM EST Health check for child over 28 days old documented in this encounter Results * Due to [place] [employer] law, this organization might not be sharing negative HIV tests. * THYROID STIMULATING HORMONE (TSH) WITH FREE T4 REFLEX, SERUM (04/03/2018 9:16 AM EST) TSH 0.99 mIU/L [facility] Comment: ? Reference Range ? 1-19 Years 0.50-4.30 ? Ranges ? First trimester ?? 0.26-2.66 ? Second trimester ??0.55-2.73 ? Third trimester ?? 0.43-2.91 04/03/2018 9:16 AM EST 04/03/2018 3:01 PM EST Narrative Resulting Agency Comment [id number] us Kandi Heller MD LABORATORY Final Result [facility] [address] [place] [address] * COMPREHENSIVE METABOLIC PANEL WITH GFR (04/03/2018 9:16 AM EST) Glucose 67 65 - 99 mg/dL [facility] Comment:Fasting reference in terval Urea Nitrogen Blood (BUN) 20 7 - 20 mg/dL [facility] Creatinine 0.56 0.50 - 1.00 mg/dL [facility] Comment:Patient is <18 years old. Unable to calculate eGFR. BUN/Creatinine Ratio NOT APPLICABLE 6 - 22 (calc) [facility] Sodium 139 135 - 146 mmol/L [facility] Potassium 4.5 3.8 - 5.1 mmol/L [facility] Chloride 101 98 - 110 mmol/L [facility] Carbon dioxide 28 20 - 32 mmol/L [facility] Calcium 10.1 8.9 - 10.4 mg/dL [facility] Protein Total (Serum) 7.5 6.3 - 8.2 g/dL [facility] Albumin 5.0 3.6 - 5.1 g/dL [facility] Globulin 2.5 2.0 - 3.8 g/dL (calc) [facility] Albumin/Globuli n 2.0 1.0 - 2.5 (calc) [facility] Bilirubin Total 0.4 0.2 - 1.1 mg/dL [facility] Alkaline phosphatase 86 47 - 176 U/L [facility] AST (SGOT) 17 12 - 32 U/L [facility] ALT (SGPT) 14 5 - 32 U/L [facility] 04/03/2018 9:16 AM EST 04/03/2018 3:01 PM EST Narrative [facility] - 04/03/2018 5:12 PM EST Please note that this estimated GFR does not include an adjustment for the patient's height or weight, and can therefore, be viewed as reliable only for patients with heights between 60 and 72 . More precise quantification using a 24-hour urine sample or height-based algorithm is recommended for patients outside of this range of height and for those individuals with more precise needs for GFR calculation. us Kandi Heller MD LABORATORY Final Result [facility] [address] [place] [address] * (ABNORMAL) LIPID PROFILE + FASTING GLUCOSE (04/03/2018 9:16 AM EST) Cholesterol 176(H) <170 mg/dL [facility] HDL Cholesterol 72 >45 mg/dL [facility] Triglyceride 77 <90 mg/dL [facility] LDL Cholesterol 87 <110 mg/dL (calc) [facility] Comment: LDL-C is now calculated using the Scott calculation, which is a validated novel method providing better accuracy than the Friedewald equation in the estimation of LDL-C. Yaw CROUCH et al. CLARE. 2013;310(19): 7609-5339 (http://PopJam.Startupi/faq/VIO463) CHOL/HDL Ratio 2.4 <5.0 (calc) [facility] Cholesterol Non-HDL 104 <120 mg/dL (calc) [facility] Comment: For patients with diabetes plus 1 major ASCVD risk factor, treating to a non-HDL-C goal of <100 mg/dL (LDL-C of <70 mg/dL) is considered a therapeutic option. 04/03/2018 9:16 AM EST 04/03/2018 3:01 PM EST Narrative Resulting Agency Comment [id number] Kandi Heller MD LABORATORY Final Result Performing Organization Address City/State/[facility] Co de Phone Number [facility] [address] [place] [address] * VITAMIN D, 25-HYDROXY, TOTAL, IMMUNOASSAY (04/03/2018 9:16 AM EST) Vitamin D, 25-OH, Total 31 30 - 100 ng/mL [facility] Comment: Vitamin D Status ? 25-OH Vitamin D: Deficiency: ?<20 ng/mL Insufficiency: ? 20 - 29 ng/mL Optimal: ? > or = 30 ng/mL For 25-OH Vitamin D testing on patients on D2-supplementation and patients for whom quantitation of D2 and D3 fractions is required, the QuestAssureD(TM) 25-OH VIT D, (D2,D3), LC/MS/MS is recommended: order code 02609 (patients >2yrs). For more information on this test, go to: http://education.Hello Curry/faq/PMK891 (This link is being provided for informational/educational purposes only.) 04/03/2018 9:16 AM EST 04/03/2018 3:01 PM EST Narrative Resulting Agency Comment [id number] Kandi Heller MD LABORATORY Final Result [facility] [address] [place] [address] documented in this encounter Visit Diagnoses Diagnosis Health check for child over 28 days old Routine infant or child health check documented in this encounter Additional Health Concerns Infection Onset Date Last Indicated Resolved Time COVID-19 Rule-Out 04/22/2020 04/22/2020 04/25/2020 8:07 AM EST COVID-19 Confirmed 04/22/2020 04/22/2020 8:12 PM EDT documented as of this encounter Care Teams Demographer Relationship Specialty Start Date End Date Leopoldo Marin MD [address] [place] [address] PCP - General 10/21/09 02/14/23 Adilene Jackson MD [address] [place] [address] PCP - General Internal Medicine 02/15/23 documented as of this encounter
--- OUTSIDE RECORDS SUMMARY | 2024-07-15 06:36 | XMS_ITS | Encounter Summary ---
Author Organization [facility] Address [address] [place] [address] Care Team Providers Care Gettering Operator Name Role Phone Leopoldo Marin MD Primary Care Provider [phone] Adilene Jackson MD Primary Care Provider [phone] Encounter Details Date Type Department Care Team (Late st Contact Info) Description 02/12/2010 Orders Only [facility] [address] [place] [address] Katt Benitez MD [address] [place] [address] Social History Tobacco Use Types Packs/Day Years Used Date Smoking Tobacco: Never Assessed Comments Unknown Sex and Gender Information Value Date Recorded Sex Assigned at Female 02/15/2023 1:29 PM EDT Legal Sex Female 1:31 PM EDT Gender Identity Female 02/15/2023 1:29 PM EDT Sexual Orientation Not on file documented as of this encounter Progress Notes * Katt Benitez MD - 02/15/2010 12:20 PM EDTQuick Note: Pt on bactrim. FYI to PCP. documented in this encounter Plan of Treatment Not on file documented as of this encounter Procedures * Due to [place] state law, this organization might not be sharing negative HIV tests. Procedure Name Priority Date/Time Associated Diagnosis Comments MICROSCOPIC URINE Routine 02/12/2010 CULTURE, URINE Routine 02/12/2010 Abdominal pain URINALYSIS, DIPSTICK WITH REFLEX MICROSCOPIC Routine 02/12/2010 Dysuria documented in this encounter Results * Due to [place] [employer] law, this organization might not be sharing negative HIV tests. * (ABNORMAL) MICROSCOPIC URINE (02/12/2010) WBC (URINE) PACKED(A) 0-4/HPF [facility] RBC (Urine Sed) > 60(A) 0-3/HPF [facility] EPITHELIAL CELLS.SQUAMOUS (URINE SED) 6-10(A) 0-5/HPF [facility] EPITHELIAL CELLS.TRANSITIO NAL (URINE SED) 0 0-5/HPF [facility] EPITHELIAL CELLS.RENAL (URINE SED) 0 0-3/HPF [facility] BACTERIA (URINE) MANY(A) NONE SEEN [facility] 02/12/2010 02/13/2010 1:1 9 AM EDT Katt Benitez MD LABORATORY Final Result Performing Organization Address City/State/[facility] Co de Phone Number [facility] [address] [place] [address] * (ABNORMAL) URINALYSIS, DIPSTICK WITH REFLEX MICROSCOPIC (02/12/2010) COLOR (URINE) YELLOW YELLOW [facility] APPEARANCE (URINE) TURBID(A) CLEAR [facility] SPECIFIC GRAVITY 1.023 1.001 - 1.035 [facility] PH (URINE) 6.0 5.0 - 8.0 [facility] PROTEIN (URINE) 3+(A) NEG [facility] GLUCOSE (URINE) NEG NEG [facility] Ketones (Urine) NEG NEG [facility] BILIRUBIN (URINE) NEG NEG [facility] BLOOD (URINE) 3+(A) NEG [facility] WBC (URINE) 3+(A) NEG [facility] NITRITE (URINE) POSITIVE(A ) NEG [facility] 02/12/2010 02/13/2010 1:1 9 AM EDT Katt Benitez MD LAB SAME DAY RESULT Final Resu lt Performing Organization Address [facility]/ZIP Co de Phone Number [facility] [address] [place] [address] * (ABNORMAL) CULTURE, URINE (02/12/2010) URINE CULTURE CLEAN VOID SEE TEXT(A) [facility] Comment: SOURCE: URINE (#1) >100,000 CFU/ML E COLI SUSCEPTIBILITIES ? #1 ??AMPICILLIN ? <8 S ?AMPICILLIN/SUL ? <8 S ?AUGMENTIN ?<8 S ?CEFAZOLIN ?<8 S ?CEFEPIME ? <4 S ?CEFOTAXIME ? <2 S ?CEFTRIAXONE ?<8 S ?CEFUROXIME ? <4 S ?CIPROFLOXACIN ?<1 S ?ERTAPENEM ?<2 S ?GENTAMICIN ? <4 S ?IMIPENEM ? <1 S ?LEVOFLOXACIN ? <2 S ?NITROFURANTOIN ?<32 S ?PIPERACILLIN/TA ?? <16 S ?TIMENTIN ?<16 S ?TOBRAMYCIN ? <4 S ?TRIMETH/SULFA ?<2 S ?? 02/12/2010 02/13/2010 1:1 9 AM EDT Katt Benitez MD LABORATORY Final Result Performing Organization Address [facility]/ZIP Co de Phone Number [facility] [address] [place] [address] documented in this encounter Visit Diagnoses Diagnosis Abdominal pain Abdominal pain, unspecified site Dysuria documented in this encounter Additional Health Concerns Infection Onset Date Last Indicated Resolved Time COVID-19 Rule-Out 04/22/2020 04/22/2020 04/25/2020 8:07 AM EST COVID-19 Confirmed 04/22/2020 04/22/2020 8:12 PM EDT documented as of this encounter Care Teams Gettering Operator Relationship Specialty Start Date End Date Leopoldo Marin MD [address] [place] [id number] PCP - General 10/21/09 02/14/23 Adilene Jackson MD [address] [place] [address] PCP - General Internal Medicine 02/15/23 documented as of this encounter
--- OUTSIDE RECORDS SUMMARY | 2024-07-15 06:36 | XMS_ITS | Encounter Summary ---
Author Organization [facility] Address [address] [place] [address] Care Team Providers Care Resource Specialist Teacher Name Role Phone Adilene Jackson MD Primary Care Provider [phone] Encounter Details Date Type Department Care Team (Late st Contact Info) Description 08/31/2023 Orders Only [facility] [address] [place] [phone] Bobbi Koenig, TEMITOPE [address] [place] [address] Social History Tobacco Use Types Packs/Day Years Used Date Smoking Tobacco: Never Smokeless Tobacco: Never Alcohol Use Standard Drinks/Week Comments Yes 0 (1 standard drink = 0.6 oz pur e alcohol) celine PHQ-2 Answer Date Recorded PHQ-2 Score 0 08/31/2023 PHQ-9 Answer Date Recorded [facility] PH[facility]-9 SEVERITY SCORE (Range 0-27) 0 08/31/2023 Intimate Partner Violence Answer Date R ecorded Fear of Current or Ex-Partner Not on file Emotionally Abused Not on file 12/22/2022 Physically Abused Not on file 12/22/2022 Sexually Abused Not on file 12/22/2022 Feel Safe at Home Not on file 12/22/2022 Comments No Sex and Gender Information Value Date Recorded Sex Assigned at Female 02/15/2023 1:29 PM EDT Legal Sex Female 1:31 PM EDT Gender Identity Female 02/15/2023 1:29 PM EDT Sexual Orientation Not on file documented as of this encounter Miscellaneous Notes * Result Encounter Note - Bobbi Koenig NP - 08/31/2023 9:54 AM EDT See [employer] message documented in this encounter Plan of Treatment Not on file documented as of this encounter Procedures * Due to [place] [employer] law, this organization might not be sharing negative HIV tests. Procedure Name Priority Date/Time Associated Diagnosis Comments THINPREP TIS PAP REFLEX HPV MRNA E6/E7, CT/NG, TRICH Routine 08/31/2023 12:14 PM EDT Screening for malignant neoplasm of cervix QUANTIFERON-TB GOLD Routine 08/31/2023 1 0:14 AM EDT Screening for tuberculosis HEPATITIS B SURFACE ANTIBODY, QUANTITATIVE (FOR IMMUNITY) Routine 08/31/2023 10:14 AM EDT Need for hepatitis B screening test HEPATITIS C AB WITH REFLEX TO RNA PCR, SERUM Routine 08/31/2023 9:55 AM EDT Need for hepatitis C screening test LIPID PANEL WITH REFLEX TO DIRECT LDL Routine 08/31/2023 9:55 AM EDT Need for lipid screening documented in this encounter Results * Due to [place] [employer] law, this organization might not be sharing negative HIV tests. * THINPREP TIS PAP REFLEX HPV MRNA E6/E7, CT/NG, TRICH (08/31/2023 12:14 PM EDT) Clinical information None given [facility] Date last menstrual period N/A [facility] Date of previous PAP smear NONE GIVEN [facility] Date of previous biopsy NONE GIVEN [facility] Specimen source (Cvx/Vag) None given [facility] Statement of Adequacy (Cvx/Vag) Satisfactory for evaluation. Endocervical/enriquez sformation zone component absent. [facility] Cytology, Pap Smear Cytology Results: Negative for intraepithelial lesion or malignancy. [facility] Cytology study comment (Cvx/Vag) This Pap test has been evaluated with computer assisted technology. [facility] Finished Yarn Examiner (Cvx/Vag) WXW, CT(ASCP) CT Screening Location: [address] [address] [facility] COMMENT SEE NOTE [facility] Comment: EXPLANATORY NOTE: The Pap is a screening test for cervical cancer. It is not a diagnostic test and is subject to false negative and false positive results. It is most reliable when a satisfactory sample, regularly obtained, is submitted with relevant clinical findings and history, and when the Pap result is evaluated along with historic and current clinical information. Chlamydia trachomatis rRNA NOT DETECTED NOT DETECTED [facility] Neisseria Gonorrhoeae rRNA NOT DETECTED NOT DETECTED [facility] COMMENT SEE NOTE [facility] Comment: The analytical performance characteristics of this assay, when used to test SurePath(TM) specimens have been determined by [facility]. The modifications have not been cleared or approved by the FDA. This assay has been validated pursuant to the CLIA regulations and is used for clinical purposes. For additional information, please refer to https://Ombu.ScaleMP/faq/HHD955 (This link is being provided for information/ educational purposes only.) Trichomonas vaginalis rRNA NOT DETECTED NOT DETECTED [facility] Comment: The analytical performance characteristics of this assay have been determined by [facility]. The modifications have not been cleared or approved by the FDA. This assay has been validated pursuant to the CLIA regulations and is used for clinical purposes. For additional information, please refer to http://Ombu.Aprovecha.com.e-Zassi/ faq/Trichomonastma (This link is being provided for information/ educational purposes only.) 08/31/2023 12:1 4 PM EDT 08/31/2023 10:37 PM EDT Narrative Resulting Agency Comment [id number] Bobbi Koenig NP PATHOLOGY-INTERFACED Final Result [facility] [address] [place] [address] * QUANTIFERON-TB GOLD (08/31/2023 10:14 AM EDT) Quantiferon(R)-TB Gold Plus NEGATIVE NEGATIVE [facility] Comment: Negative test result. M. tuberculosis complex infection unlikely. NIL 0.06 IU/mL [facility] MITOGEN-NIL >10.00 IU/mL [facility] Mycobacterium tuberculosis tuberculin stimulated gamma interferon^correc angelica for background 0.00 IU/mL [facility] TB2-NIL 0.01 IU/mL [facility] Comment: The Nil tube value reflects the background interferon gamma immune response of the patient's blood sample. This value has been subtracted from the patient's displayed TB and Mitogen results. Lower than expected results with the Mitogen tube prevent false-negative Quantiferon readings by detecting a patient with a potential immune suppressive condition and/or suboptimal pre-analytical specimen handling. The TB1 Antigen tube is coated with the M. tuberculosis-specific antigens designed to elicit responses from TB antigen primed CD4+ helper T-lymphocytes. The TB2 Antigen tube is coated with the M. tuberculosis-specific antigens designed to elicit responses from TB antigen primed CD4+ helper and CD8+ cytotoxic T-lymphocytes. For additional information, please refer to https://Ombu.Aprovecha.com.e-Zassi/faq/WZZ433 (This link is being provided for informational/ educational purposes only.) 08/31/2023 10:1 4 AM EDT 08/31/2023 5:01 PM EDT Narrative Resulting Agency Comment [id number] Bobbi Koenig NP LABORATORY Final Resu lt [facility] [address] [place] [address] * (ABNORMAL) HEPATITIS B SURFACE ANTIBODY, QUANTITATIVE (FOR IMMUNITY) (08/31/2023 10:14 AM EDT) Hepatitis B virus surface Ab <5(L) > OR = 10 mIU/mL [facility] Comment: PATIENT DOES NOT HAVE IMMUNITY TO HEPATITIS B VIRUS. For additional information, please refer to http://Ombu.ScaleMP/faq/RPI900 (This link is being provided for informational/ educational purposes only). 08/31/2023 10:1 4 AM EDT 08/31/2023 5:01 PM EDT Narrative Resulting Agency Comment [id number] Bobbi Koenig NP LABORATORY Final Resu lt [facility] [address] [place] [address] * HEPATITIS C AB WITH REFLEX TO RNA PCR, SERUM (08/31/2023 9:55 AM EDT) Hepatitis C virus Ab Signal/Cutoff 0.06 <1.00 [facility] Hepatitis C virus Ab NON-REACTI VE NON-REACTI VE [facility] 08/31/2023 9:55 AM EDT 08/31/2023 9:55 AM EDT Narrative [facility] - 08/31/2023 12:24 PM EDT Patient's primary care provider is: ??N/A Testing performed at: [facility], [address] [place] [address], [id number], Basket Maker: Jefferson Lerma MD Bobbi Koenig NP LABORATORY Final Resu lt Performing Organization Address [facility]/ZIP Co de Phone Number [address] [address] DIRECTOR Jefferson Lerma MD * LIPID PANEL WITH REFLEX TO DIRECT LDL (08/31/2023 9:55 AM EDT) Cholesterol 162 <200 mg/dL [facility] Triglyceride 141 <150 mg/dL [facility] HDL Cholesterol 52 >40 mg/dL [facility] Comment: NCEP GUIDELINES Desirable >60 mg/dL Borderline 40-59 mg/dL ?? Undesirable <40 mg/dL LDL Cholesterol 82 <130 mg/dL [facility] CHOL/HDL Ratio 3 0 - 5 CALC [facility] 08/31/2023 9:55 AM EDT 08/31/2023 9:55 AM EDT Narrative [facility] - 08/31/2023 12:15 PM EDT Patient's primary care provider is: ??N/A Testing performed at: [facility], [address] [place] [address], [id number], Basket Maker: Jefferson Lerma MD Bobbi Koenig NP LABORATORY Final Resu lt [address] [address] DIRECTOR Jefferson Lerma MD documented in this encounter Visit Diagnoses Diagnosis Need for hepatitis B screening test Screening for tuberculosis Screening examination for pulmonary tuberculosis Need for lipid screening Screening for lipoid disorders Need for hepatitis C screening test Special screening examination for other specified viral diseases Screening for malignant neoplasm of cervix Screening for malignant neoplasm of the cervix documented in this encounter Care Teams Resource Specialist Teacher Relationship Specialty Start Date End Date Adilene Jackson MD [address] [place] [id number] PCP - General Internal Medicine 02/15/23 documented as of this encounter
--- OUTSIDE RECORDS SUMMARY | 2024-07-15 06:36 | XMS_ITS | Clinical Summary ---
Author Organization [facility] Address [address] [place] [address] Care Team Providers Care Road Repairer Name Role Phone Adilene Jackson MD Primary Care Provider [phone] Allergies No known active allergies Medications buPROPion HCl ER, XL, 150 MG TABLET SR 24 HR None Entered 9 Active Levonorgestrel (Kyleena) 19.5 MG IUD by Intrauterine route Active Albuterol (PROVENTIL HFA;VENTOLIN HFA) 90 mcg/ACT inhalerIndicati ons:Travel advice encounter Inhale two puffs every 4 (four) hours if needed for wheezing or shortness of breath Dispense Generic or Brand Albuterol per preferred payor coverage.. 1 each 3 07/21/19 25 Active Acetic Acid (VOSOL) 2 % otic solution Administer 5 drops into the affected ear(s). 4 Active Escitalopram (LEXAPRO) 10 MG tablet Take 10 mg by mouth 1 (one) time each day. 4 Active Escitalopram (LEXAPRO) 5 MG tablet Take 5 mg by mouth 1 (one) time each day. 4 Active Vyvanse 40 MG capsule Take by mouth 1 (one) time each day. 4 Active Active Problems Problem Noted Date Diagnosed Date IUD (intrauterine device) in place 08/31/2023 Overview (08/31/2023): Kylena placed 2020, due for removal in 2025 Anxiety 04/10/2019 Overview (08/31/2023): Stable, no concerns at this time Eczema 04/03/2018 Overview (08/31/2023): Stable, no concerns at this time ADHD (attention deficit hyperactivity disorder) 03/15/2016 Overview (08/31/2023): 02/2016: Sees Dr. Huerta in [place]. Daytrana for ADHD, switched adderall [address] Huerta every 2 months. Off of 504 plan. 03/2018: Vyvanse 08/31/[address] Huerta weekly, feels anxiety and ADHD are well controlled vyvanse and lexapro and wellbutrin; no side effects Extrinsic asthma 06/26/2006 Overview (08/31/2023): 02/2016: long time . Occurs around illness. Has not required neb in years. 07/13/2020: has inhaler at home, uses once a year when sick 08/31/2023 Stable, has albuterol inhaler prn. Has not needed it in a few years Resolved Problems Problem Noted Date Diagnosed Date Resolved Date Concussion 04/10/2019 08/31/2023 Overview (04/10/2019): Hit iin head with softball 07/21/18 Irregular periods 04/03/2018 07/13/2020 Overview (04/03/2018): Operations Research Analyst referral Delayed period 03/19/2016 08/31/2023 Overview (07/13/2020): + secondary sexual characteristicts at age 15, but no period yet. + family hx of delayed period in mom (age 16) and sisters (menarche at age 16) Menarche age 16. Irregular periods. 07/13/2020 has IUD that was placed March 2019 Routine health maintenance 03/08/2015 0 08/31/2023 Overview (03/08/2015): 02/2015: At home with brother (17 y/o, Ray, healthy) and mom. Fracture of navicular bone of wrist 10/10/2013 07/13/2020 Immunizations Name Administration Dates Next Due COVID-19, mRNA (Moderna Pre Fall 2022) Monovalent, 100 mcg/0.5 ml or 50 mcg/0.25 ml dose 05/02/2021 COVID-19, mRNA (Moderna Spik evax) Seasonal, 50 mcg/0.5 mL (12+) 02/23/2023 COVID-19, mRNA (Pfizer Pre F all 2022) Monovalent, 30 mcg/0.3 ml 08/11/2020,07/20/2020 Covid-19, mRNA (Pfizer Comir cale) Seasonal, 30 mcg/0.3 mL (12+) 01/25/2024 Covid-19, mRNA (Pfizer Pre F all 2022) Bivalent, 30 mcg/0.3 ml mandy-sucrose (12+) dose 03/24/2022 DTaP 06/03/2003, 3,02/10/2002,12/09 HIB (PRP-T) 06/03/2003, 3,02/10/2002,12/09 HPV9 (Gardasil 9) 09/14/2015,05/14/2015,03/08/20 15 Hep A 11/06/2012,11/07/2011 Hep B (pedi) 08/20/2002,2001,2001 Hep B-CpG (Heplisav) 09/10/2023 IPV 04/03/2018, 3,02/10/2002,12/09 Influenza,MDCK,trivalent,PF (Flucelvax) 01/25/2024 Influenza,injectable,MDCK, P rsrv Fr,Quad 01/26/2020 Influenza,injectable,quad,Prsrv Fr 02/23,03/23/2022,03/01/2021,04/10,04/03/2018,03/28/2017,03/06/2014 Influenza,seasonal,trivalent ,preservat beth (FLUZONE MDV) 04/28/2003 MMR 06/03/2003,04/28/2003 Meningococcal ACWY (Menactra) 04/03/2018, 013 PCV-20 04/12/2023 PCV-7 04/28/2003, 3,02/10/2002,12/09 State Influenza Vac,Quad, Pr srv Fr, 3yrs &> 03/15/2016,03/08/2015 Td (adult), adsorbed 11/17/2008 Tdap 04/12/2023 Tdap(Adacel) 11/06/2012 Typhoid, ViCPS 04/12/2023 Varicella 11/06/2012,06/03/2003 Family History Medical History Relation Name Comments Psych/Mental Health Brother bi polar Asthma Other 1 unspecified fam saurabh member Diabetes Other 2 unspecified fam saurabh member Hypertension Other 3 unspecified fam saurabh member Lipid/Cholesterol Abnormality Other 4 unspecified family member Cancer (?Type) Other 5 unspecified f amily member Other Other 6 seizures-unspec ified family member Relation Name Status Comments Brother Other 1 Other 2 Other 3 Other 4 Other 5 Other 6 Social History Tobacco Use Types Packs/Day Years Used Date Smoking Tobacco: Never Smokeless Tobacco: Never Alcohol Use Standard Drinks/Week Comments Yes 0 (1 standard drink = 0.6 oz pur e alcohol) celine PHQ-2 Answer Date Recorded PHQ-2 Score 0 08/31/2023 PHQ-9 Answer Date [facility]ed [facility] SEVERITY SCORE (Range 0-27) 0 08/31/2023 [...] PM EDT Sexual Orientation Not on file Last Filed Vital Signs Vital Sign Reading Time Taken Comments Blood Pressure 102/70 09/18/2023 11:07 AM EDT Pulse 91 09/18/2023 11:07 AM EDT Temperature 37.1 ??C (98.8 ??F) 10/16/2018 4:01 PM ED T Respiratory Rate 16 08/31/2023 8:36 AM EDT Oxygen Saturation 99% 08/31/2023 8:36 AM EDT Inhaled Oxygen Concentration - - Weight 65.3 kg (144 lb) 09/18/2023 11:07 AM EDT Height 160 cm (5' 3 ) 09/18/2023 11:07 AM EDT Body Mass Index 25.51 09/18/2023 11:07 AM EDT Plan of Treatment Health Maintenance Due Date Last Done Comments Chlamydia 08/30/2024 08/31/2023, 08/2023, 07/13/2020, Additional history exists Pap Smear 08/30/2026 08/31/2023, 08/21, 08/31/2023 DTaP/Tdap/Td (8 - Td or Tdap) 04/12/2033, 11/06/2012, 11/17/2008, Additional history exists Zoster (Shingrix) (1 of 2) 10/23/2051 11/06/2012, Hib Completed 06/03/2003, 04/23, 02/10/2002, Additional history exists Chest Imaging Discontinued 05/17/2004, 03/24, 05/09/2002, Additional history exists Hep A Completed 11/06/2012, 11/07/2011 HPV Vaccine Completed 09/14/2015, 04/24, 03/08/2015 Meningococcal ACWY Completed 04/03/2018, 11/06/2012 Eye/Retina Exam Discontinued 08/08/2018 Pneumococcal Completed 04/12/2023, 09/2003, 05/07/2002, Additional history exists Hepatitis C Screening Completed 08/31/2023 LDL Cholesterol Discontinued 08/31/2023, 04/03/2018 Physical Discontinued 08/31/2023, 06/22, 04/10/2019, Additional history exists Hep B Completed 09/10/2023, 07/24, 2001, Additional history exists COVID-19 Vaccine Completed 01/25/2024, 06/2022, 03/24/2022, Additional history exists Influenza Completed 01/25/2024, 06/2022, 03/23/2022, Additional history exists Procedures * Due to [facility] law, this organization might not be sharing negative HIV tests. Procedure Name Priority Date/Time Associated Diagnosis Comments THINPREP TIS PAP REFLEX HPV MRNA E6/E7, CT/NG, TRICH Routine 08/31/2023 12:14 PM EDT Screening for malignant neoplasm of cervix HEPATITIS C AB WITH REFLEX TO RNA PCR, SERUM Routine 08/31/2023 9:55 AM EDT Need for hepatitis C screening test LIPID PANEL WITH REFLEX TO DIRECT LDL Routine 08/31/2023 9:55 AM EDT Need for lipid screening XRAY CHEST 2 VIEWS PA & LAT Routine 05/17/2004 12:11 PM EST Cough from Last 3 Months or Most Recently Relevant to Health Maintenance Results * Due to [place] [employer] law, this organization might not be sharing [...] for evaluation. Endocervical/enriquez sformation zone component absent. [facility] Cytology, Pap Smear Cytology Results: Negative for intraepithelial lesion or malignancy. [facility] Cytology study comment (Cvx/Vag) This Pap test has been evaluated with computer assisted technology. [facility] Long Distance Billing Operator (Cvx/Vag) WXW, CT(ASCP) CT Screening Location: [address] [address] [facility] COMMENT SEE NOTE [facility] Comment: EXPLANATORY NOTE: The Pap is a [...] DIAGNOSTICS COMMENT SEE NOTE [facility] Comment: The analytical performance characteristics of this assay, when used to test SurePath(TM) specimens have been determined by [employer]. The modifications have not been cleared or approved by the FDA. This assay has been validated pursuant to the CLIA regulations and is used for clinical purposes. For additional information, please refer to https://Hotelogix.Scan/faq/IOZ331 (This link is being provided for information/ educational purposes only.) Trichomonas vaginalis rRNA NOT DETECTED NOT DETECTED [facility] Comment: The analytical performance characteristics of this assay have been determined by [employer]. The modifications have not been cleared or approved by the FDA. This assay has been validated pursuant to the CLIA regulations and is used for clinical purposes. For additional information, please refer to http://Hotelogix.Scan/ faq/Trichomonastma (This link is being provided for information/ educational purposes only.) 08/31/2023 12:1 4 PM EDT 08/31/2023 10:37 PM EDT Narrative Resulting Agency Comment [id number] Maya Koenig NP PATHOLOGY-INTERFACED Final Result Performing Organization Address City/State/[facility] Co de Phone Number [facility] [address] [place] [address] * HEPATITIS C AB WITH REFLEX TO RNA PCR, SERUM (08/31/2023 9:55 AM EDT) Hepatitis C virus Ab Signal/Cutoff 0.06 <1.00 [facility] Hepatitis C virus Ab NON-REACTI VE NON-REACTI VE [facility] 08/31/2023 9:55 AM EDT 08/31/2023 9:55 AM EDT Narrative [facility] - 08/31/2023 12:24 PM EDT Patient's primary care provider is: ??N/A Testing performed at: [facility], [address] [place] [address], [id number], Marine Firer: Jefferson Lerma MD Maya Koenig NP LABORATORY Final Resu lt Performing Organization Address [facility] de Phone Number [address] [address] DIRECTOR Jefferson Lerma MD * LIPID PANEL WITH REFLEX TO DIRECT LDL (08/31/2023 9:55 AM EDT) Cholesterol 162 <200 mg/dL [facility] Triglyceride 141 <150 mg/dL [facility] HDL Cholesterol 52 >40 mg/dL [facility] Comment: NCEP GUIDELINES Desirable >60 mg/dL Borderline 40-59 mg/dL ?? Undesirable <40 mg/dL LDL Cholesterol 82 <130 mg/dL [facility] CHOL/HDL Ratio 3 0 - 5 [facility] 08/31/2023 9:55 AM EDT 08/31/2023 9:55 AM EDT Narrative [facility] - 08/31/2023 12:15 PM EDT Patient's primary care provider is: ??N/A Testing performed at: [facility], [address] [place] [address], [address], Marine Firer: Jefferson Lerma MD Maya Koenig NP LABORATORY Final Resu lt Performing Organization Address [facility] de Phone Number [address] [address] DIRECTOR Jefferson Lerma MD * XRAY CHEST 2 VIEWS PA & LAT (05/17/2004 12:11 PM EST) RADIOLOGY REPORT Chest, PA and lateral The cardiomediastinal contour, pulmonary vasculature, and lung laureano are within normal limits. ??Pleural reflections are clear and bony structures are unremarkable. IMPRESSION: ??No active disease. [facility] (CLIA# [id number]) Anatomical Region Laterality Modality Other 05/17/2004 12:1 1 PM EST Narrative 05/17/2004 5:18 PM EST Reason for Study/History: CHEST CONT,COUGH, AND CTACKLE Test(s) processed by : [facility] Randy Hester MD GENERAL IMAGING- OTHER Final Res ult from Last 3 Months or Most Recently Relevant to Health Maintenance Insurance [employer] Advance Directives Documents on File Type Date Recorded Patient Claims Attorney Expl anation Advance Directives and Livin g Will 01/11/2015 6:56 PM Power of Building Drafting Officer 01/11/2015 6:[address] Repairer Relationship Specialty Start Date End Date Adilene Jackson MD [address] [place] [id number] PCP - General Internal Medicine 02/15/23
--- OUTSIDE RECORDS SUMMARY | 2024-07-15 06:36 | XMS_ITS | Encounter Summary ---
Author Organization [facility] Address [address] [place] [address] Care Team Providers Care Child Guidance Counselor Name Role Phone Leopoldo Marin MD Primary Care Provider Adilene Jackson MD Primary Care Provider [phone] Encounter Details Date Type Department Care Team (Late st Contact Info) Description 11/18/2011 Orders Only [facility] [address] [place] [phone] Kandi Heller MD [address] [place] [address] Medications Social History Tobacco Use Types Packs/Day Years Used Date Smoking Tobacco: Never Assessed Comments Unknown Sex and Gender Information Value Date Recorded Sex Assigned at Female 02/15/2023 1:29 PM EDT Legal Sex Female 1:31 PM EDT Gender Identity Female 02/15/2023 1:29 PM EDT Sexual Orientation Not on file documented as of this encounter Progress Notes * Tali Rg - 11/24/2011 6:03 PM EDTQuick Note: Result to pcp * Tiff Mahoney MD - 11/24/2011 6:01 PM EDTQuick Note: No further treatment necessary. * Tali Rg - 11/24/2011 5:25 PM EDTQuick Note: See telephone encounter of 8-1: pt rx with amoxicillin. To [facility]: ? Any other treatment needed documented in this encounter Plan of Treatment Not on file documented as of this encounter Procedures * Due to [place] [employer] law, this organization might not be sharing negative HIV tests. Procedure Name Priority Date/Time Associated Diagnosis Comments BORRELIA BURGDORFERI AB (LYME), EIA WITH REFLEX IGG, IGM WB Routine 11/18/2011 9:16 AM EDT Pain in joint BORRELIA BURGDORFERI AB(LYME)(IGG,IGM), WESTERN BLOT Routine 11/18/2011 9:16 AM EDT documented in this encounter Results * Due to [place] [employer] law, this organization might not be sharing negative HIV tests. * (ABNORMAL) BORRELIA BURGDORFERI AB(LYME)(IGG,IGM), WESTERN BLOT (11/18/2011 9:16 AM EDT) Borrelia burgdorferi Ab.IgG NEGATIVE NEGATIVE [facility] Comment:{LYME DISEASE AB (IG G) WB {[id number]) Borrelia burgdorferi 18kD Ab.IgG NON-REACTIVE [facility] Comment:{18 KD (IGG) BAND {[id number]) Borrelia burgdorferi 23kD Ab.IgG REACTIVE(A) [facility] Comment:{23 KD (IGG) BAND {[id number]) Borrelia burgdorferi 28kD Ab.IgG NON-REACTIVE [facility] Comment:{28 KD (IGG) BAND {[id number]) Borrelia burgdorferi 30kD Ab.IgG NON-REACTIVE [facility] Comment:{30 KD (IGG) BAND {Q [id number]) Borrelia burgdorferi 39kD Ab.IgG NON-REACTIVE [facility] Comment:{39 KD (IGG) BAND {[id number]) Borrelia burgdorferi 41kD Ab.IgG REACTIVE(A) [facility] Comment:{41 KD (IGG) BAND {Q [id number]) Borrelia burgdorferi 45kD Ab.IgG NON-REACTIVE [facility] Comment:{45 KD (IGG) BAND {[id number]) Borrelia burgdorferi 58kD Ab.IgG NON-REACTIVE [facility] Comment:{58 KD (IGG) BAND {Q [id number]) Borrelia burgdorferi 66kD Ab.IgG NON-REACTIVE [facility] Comment:{66 KD (IGG) BAND {Q [id number]) Borrelia burgdorferi 93kD Ab.IgG NON-REACTIVE [facility] Comment: {93 KD (IGG) BAND {[id number]) IgG western blots which have 5 (or more) of the 10 significant bands are considered positive for specific antibody to B. burgdorferi. (Proceedings of the 2nd Conf. on Lyme Disease, [place], [place], 1993.) Borrelia burgdorferi Ab.IgM NEGATIVE NEGATIVE [facility] Comment:{LYME DISEASE AB (IG M) WB {[id number]) Borrelia burgdorferi 23kD Ab.IgM REACTIVE(A) [facility] Comment:{23 KD (IGM) BAND {Q [id number]) Borrelia burgdorferi 39kD Ab.IgM NON-REACTIVE [facility] Comment:{39 KD (IGM) BAND {Q [id number]) Borrelia burgdorferi 41kD Ab.IgM NON-REACTIVE [facility] Comment: {41 KD (IGM) BAND {[id number]) IgM western blots which have 2 (or more) of the 3 significant bands are considered positive for specific antibody to B. burgdorferi. (Proceedings of the 2nd Conf. on Lyme Disease, [place], [place], 1993.) 11/18/2011 9:16 AM EDT 11/18/2011 4:45 PM EDT us Kandi Heller MD LABORATORY Final Result [facility] [address] [place] [address] * (ABNORMAL) BORRELIA BURGDORFERI AB (LYME), EIA WITH REFLEX IGG, IGM WB (11/18/2011 9:16 AM EDT) Borrelia burgdorferi Ab 1.27(H) index [facility] Comment: {LYME AB SCREEN {[id number]) Index ? Interpretation < or = 0.90 ? Negative 0.91-1.09 ? Equivocal > or = 1.10 ? Positive As recommended by the Food and Drug Administration (FDA), all samples with positive or equivocal results in the Borrelia burgdorferi antibody EIA (screening) will be tested by Western Blot. Positive or equivocal screening test results should not be interpreted as truly positive until verified as such using a confirmatory assay (e.g., B. burgdorferi Western Blot). The screening test and/or Western Blot for B. burgdorferi antibodies may be falsely negative in early stages of Lyme disease, including the period when erythema migrans is apparent. 11/18/2011 9:16 AM EDT 11/18/2011 4:45 PM EDT Narrative Resulting Agency Comment [id number] Kandi Heller MD LABORATORY Final Result [facility] [address] [place] [address] documented in this encounter Visit Diagnoses Diagnosis Pain in joint- Primary Pain in joint, site unspecified documented in this encounter Additional Health Concerns Infection Onset Date Last Indicated Resolved Time COVID-19 Rule-Out 04/22/2020 04/22/2020 04/25/2020 8:07 AM EST COVID-19 Confirmed 04/22/2020 04/22/2020 8:12 PM EDT documented as of this encounter Care Teams Child Guidance Counselor Relationship Specialty Start Date End Date Leopoldo Marin MD [address] [place] [id number] PCP - General 10/21/09 02/14/23 Adilene Jackson MD [address] [place] [id number] PCP - General Internal Medicine 02/15/23 documented as of this encounter
--- OUTSIDE RECORDS SUMMARY | 2024-07-15 06:36 | XMS_ITS | Encounter Summary ---
Author Organization [facility] Address [address] [place] [address] Care Team Providers Care Network Programmer Name Role Phone Leopoldo Marin MD Primary Care Provider Adilene Jackson MD Primary Care Provider Encounter Details Date Type Department Care Team (Late st Contact Info) Description 12/05/2018 Orders Only [facility] [address] [place] [address] Leopoldo Marin MD [address] [place] [address] Social History Tobacco Use Types Packs/Day Years Used Date Smoking Tobacco: Never Smokeless Tobacco: Never Comments No Sex and Gender Information Value Date Recorded Sex Assigned at Female 02/15/2023 1:29 PM EDT Legal Sex Female 1:31 PM EDT Gender Identity Female 02/15/2023 1:29 PM EDT Sexual Orientation Not on file documented as of this encounter Progress Notes * Wen Dailey RN - 12/06/2018 3:14 PM EDT Message sent to covering provider to send in OCP documented in this encounter Plan of Treatment Not on file documented as of this encounter Procedures * Due to [place] state law, this organization might not be sharing negative HIV tests. Procedure Name Priority Date/Time Associated Diagnosis Comments CHLAMYDIA TRACHOMATIS, RNA, TMA (URINE) Routine 12/05/2018 4:25 PM EDT Screening for chlamydial disease HCG, (HUMAN CHORIONIC GONADOTROPIN), URINE, QUALITATIVE (SITE - STAT ONLY) Routine 12/05/2018 4:25 PM EDT Irregular periods documented in this encounter Results * Due to [place] [employer] law, this organization might not be sharing negative HIV tests. * HCG, (HUMAN CHORIONIC GONADOTROPIN), URINE, QUALITATIVE (SITE - STAT ONLY) (12/05/2018 4:25 PM EDT) HCG, Qualitative, Urine NEGATIVE NEGATIVE [facility] 12/05/2018 4:25 PM EDT 12/05/2018 6:07 PM EDT Narrative Resulting Agency Comment [id number] us Tanika Cisneros DNP LAB SAME DAY RESULT Fi nal Result Performing Organization Address City/[facility] Co de Phone Number [facility] [address] [place] [address] * CHLAMYDIA TRACHOMATIS, RNA, TMA (URINE) (12/05/2018 4:25 PM EDT) Chlamydia trachomatis rRNA NOT DETECTED NOT DETECTED [facility] COMMENT SEE NOTE [facility] Comment: This test was performed using the APTIMA COMBO2 Assay ([employer] The analytical performance characteristics of this assay, when used to test SurePath specimens have been determined by [employer] [facility]. 12/05/2018 4:25 PM EDT 12/05/2018 6:07 PM EDT Narrative Resulting Agency Comment [id number] us Leopoldo Marin MD LABORATORY Final Result Performing Organization Address City/[facility]/ZIP Co de Phone Number [facility] [address] [place] [phone] documented in this encounter Visit Diagnoses Diagnosis Screening for chlamydial disease Special screening examination for unspecified chlamydial disease Irregular periods Irregular menstrual cycle documented in this encounter Additional Health Concerns Infection Onset Date Last Indicated Resolved Time COVID-19 Rule-Out 04/22/2020 04/22/2020 04/25/2020 8:07 AM EST COVID-19 Confirmed 04/22/2020 04/22/2020 8:12 PM EDT documented as of this encounter Care Teams Network Programmer Relationship Specialty Start Date End Date Leopoldo Marin MD [address] [place] [address] PCP - General 10/21/09 02/14/23 Adilene Jackson MD [address] [place] [address] PCP - General Internal Medicine 02/15/23 documented as of this encounter
--- OUTSIDE RECORDS SUMMARY | 2024-07-15 06:36 | XMS_ITS | Encounter Summary ---
Author Organization [facility] Address [address] [place] [address] Care Team Providers Care Safe Technician Name Role Phone Adilene Jackson MD Primary Care Provider [phone] Encounter Details Date Type Department Care Team (Late st Contact Info) Description 08/31/2023 Orders Only [facility] [address] [place] [phone] Adilene Jackson MD [address] [place] [phone] Social History Tobacco Use Types Packs/Day Years Used Date Smoking Tobacco: Never Smokeless Tobacco: Never Alcohol Use Standard Drinks/Week Comments Yes 0 (1 standard drink = 0.6 oz pur e alcohol) celine PHQ-2 Answer Date Recorded PHQ-2 Score 0 08/31/2023 PHQ-9 Answer Date [facility] SEVERITY SCORE (Range 0-27) [...] of this encounter Procedures * Due to [facility] law, this organization might not be sharing negative HIV tests. Procedure Name Priority Date/Time Associated Diagnosis Comments CBC (H/H, RBC, INDICES,WBC, PLT) Routine 08/31/2023 9:55 AM EDT Elevated platelet count BASIC METABOLIC PANEL WITH (GFR) Routine 08/31/2023 9:55 AM EDT Serum calcium elevated documented in this encounter Results * Due to [place] [employer] law, this organization might not be sharing negative HIV tests. * CBC (H/H, RBC, INDICES,WBC, PLT) (08/31/2023 9:55 AM EDT) WBC 8.8 3.8 - 10.8 K/uL [facility] RBC 4.11 3.80 - 5.10 M/uL [facility] Hemoglobin 12.9 11.7 - 15.5 g/dL [facility] Hematocrit 37.8 35.0 - 45.0 % [facility] MCV 92.0 80.0 - 100.0 fl [facility] MCH 31.4 27.0 - 33.0 pg [facility] MCHC 34.1 32.0 - 36.0 g/dL [facility] RDW 11.7 11.0 - 15.0 % [facility] PLT 351 140 - 400 K/uL [facility] 08/31/2023 9:55 AM EDT 08/31/2023 9:55 AM EDT Narrative [facility] - 08/31/2023 10:32 AM EDT Patient's primary care provider is: ??N/A Testing performed at: [facility], [address] [place] [address] , [place], [address], Title Insurance Agent: Jefferson Lerma MD us Adilene Jackson MD LAB SAME DAY RESULT Final Resul t [address] [address] DIRECTOR Jefferson Lerma MD * BASIC METABOLIC PANEL WITH (GFR) (08/31/2023 9:55 AM EDT) Glucose 78 65 - 99 mg/dl [facility] Urea Nitrogen Blood (BUN) 17 7 - 25 mg/dL [facility] Creatinine 0.60 0.50 - 1.16 mg/dL [facility] Sodium 137 135 - 146 mmo/L [facility] Potassium 4.4 3.5 - 5.3 mmol/L [facility] Chloride 100 98 - 107 mmo/L [facility] Carbon dioxide 25 23 - 33 mmol/L [facility] Calcium 9.8 8.5 - 10.4 mg/dL [facility] GFR 133 >60 ml/min [facility] 08/31/2023 9:55 AM EDT 08/31/2023 9:55 AM EDT Narrative [facility] - 08/31/2023 12:16 PM EDT Patient's primary care provider is: ??N/A Testing performed at: [facility], [address] [place] [address], [address], Title Insurance Agent: Jefferson Lerma MD Adilene Jackson MD LABORATORY Final Result [address] [address] DIRECTOR Jefferson Lerma MD documented in this encounter Visit Diagnoses Diagnosis Serum calcium elevated Hypercalcemia Elevated platelet count Essential thrombocythemia documented in this encounter Care Teams Safe Technician Relationship Specialty Start Date End Date Adilene Jackson MD [address] [place] [address] PCP - General Internal Medicine 02/15/23 documented as of this encounter
--- OUTSIDE RECORDS SUMMARY | 2024-07-15 06:36 | XMS_ITS | Clinical Summary ---
Author Organization [facility] Address [address] [place] [address] Care Team Providers Care Operations Developer Name Role Phone Adilene Jackson Primary Care Provider [phone] Allergies No known active allergies Medications buPROPion [...] 08/30/2023 8:22 AM EDT Plan of Treatment Health Maintenance Due Date Last Done Comments HIV Screening 2001 Hepatitis C Screening 2001 Pap Smear 2001 HPV Vaccines (1 - 3-dose series) 2016 Chlamydia Screening 2017 COVID-19 Vaccine (2023-2 5 season) 2023 02/23/2023, 03/24/2022, 05/02/2021, Additional history exists Influenza Vaccine (#1) 2023 , 03/23/2022, 03/01/2021, Additional history exists Alcohol/Substance Use Screening 04/23/2024 Depression Screening and Follow-Up 04/23/2024 Social Drivers of Health [facility] Screening 04/23/2024 DTaP,Tdap,and Td Vaccines (7 - Td or Tdap) 04/12/2033 04/12/2023, 11/17/2008, 06/03/2003, Additional history exists RSV Vaccine (60+ years old a nd patients) (1 - 1-dose 75+ series) 2076 Hepatitis B Vaccines Completed 08/20/2002, 2001, 2001 Varicella Vaccines Completed 11/06/2012, 06/03/2003 Meningococcal Vaccine Completed 04/03/2018, 013 Pneumococcal Vaccine: Pediat wil (0-5 Years) and At-Risk Patients (6-50 Years) Completed 04/12/2023, 04/28/2003, 05/07/2002, Additional history exists Insurance HMO/POS HMO/POS Care Teams Operations Developer Relationship Specialty Start Date End Date Adilene Jackson DO [address] [place] [id number] PCP - General 08/30/23
== END 2024-07-15 06:33 | disposition home or self-care (01) ==
LOC: HO.UMASIMG 06:32
PROVIDERS: Visit Provider Nurse Practitioner Women's Health
DX: N93.0 Postcoital and contact bleeding (principal); Z30.431 Encounter for routine checking of intrauterine contraceptive device
CPT/HCPCS: 76830; 76856

== ENCOUNTER → 2024-07-15 14:30 | Outpatient (BNV) | payer BC, SELFPAY | PROVIDERS: Visit Provider Radiology Diagnostic Radiology | DX: N93.0 Postcoital and contact bleeding (principal); Z97.5 Presence of (intrauterine) contraceptive device | CPT/HCPCS: 76830; 76856 ==